=== PATIENT | female | born 1935 | race Asian ===

== ENCOUNTER 2017-09-22 12:13 | Inpatient (IN) | payer MEDICARE, OTHER ==
[2017-09-22 12:56] LABS: ADD MAN DIFF? NO
[2017-09-22] MEDS ORDERED: ACETAMINOPHEN 325 MG TAB PO (13:00)
[2017-09-22] MEDS ORDERED: ONDANSETRON 4 MG INJ IV ×2 (13:00→16:00)
[2017-09-22 13:01] LABS: BASOPHIL # 0.1 10^3/ul (0.0-0.1); BASOPHILS % 0.4 % (0.0-2.0); EOSINOPHILS # 0.1 10^3/ul (0.0-0.5); EOSINOPHILS % 0.9 % (0.0-7.0); HEMATOCRIT 26.5 % (37.0-47.0); MEAN CORPUSCULAR HEMOGLOBIN 30.4 pg (29.0-33.0); MEAN CORPUSCULAR HGB CONC 30.2 g/dl (32.0-37.0); MEAN CORPUSCULAR VOLUME 100.8 fl (82.0-101.0); MEAN PLATELET VOLUME 11.3 fl (7.4-10.4); MONOCYTE # 0.8 10^3/ul (0.3-0.9); MONOCYTES % 5.5 % (0.0-11.0); NEUTROPHIL # 11.9 10^3/ul (1.6-7.5); NEUTROPHILS % 85.6 % (39.0-77.0); PLATELET COUNT 263 10^3/UL (140-415); RED BLOOD COUNT 2.63 10^6/ul (4.20-5.40); RED CELL DISTRIBUTION WIDTH 19.6 % (11.5-14.5)
[2017-09-22 13:01] LABS: WHITE BLOOD COUNT 13.9 10^3/ul (4.8-10.8)
[2017-09-22 13:15] LABS: LACTIC ACID 1.6 mmol/L (0.5-2.0)
[2017-09-22 13:19] LABS: ALANINE AMINOTRANSFERASE 30 IU/L (13-69); ALBUMIN 2.6 g/dl (3.3-4.9); ALBUMIN/GLOBULIN RATIO 0.63; ALKALINE PHOSPHATASE 189 IU/L (42-121); ASPARTATE AMINO TRANSFERASE 42 IU/L (15-46); BILIRUBIN,INDIRECT 0.1 mg/dl (0-1.1); BILIRUBIN,TOTAL 0.1 mg/dl (0.2-1.3); BLOOD UREA NITROGEN 86 mg/dl (7-20); CALCIUM 8.6 mg/dl (8.4-10.2); CHLORIDE 101 mmol/L (97-110); CREATININE 0.81 mg/dl (0.44-1.00); GLUCOSE 193 mg/dl (70-220); POTASSIUM 3.1 mmol/L (3.5-5.1); SODIUM 151 mmol/L (135-144); TOTAL PROTEIN 6.7 g/dl (6.1-8.1)
[2017-09-22 13:31] LABS: ANION GAP 14 (8-16); CARBON DIOXIDE 39 mmol/L (21-31)
[2017-09-22 13:32] LABS: INR 1.43; PROTIME 17.7 Sec (11.9-14.9); PT RATIO 1.4
[2017-09-22 13:33] LABS: PARTIAL THROMBOPLASTIN TIME 42.2 Sec (25.0-35.0)
[2017-09-22] MEDS: ONDANSETRON 4 MG INJ IV (13:52)
[2017-09-22] MEDS: morphine 4 MG/ML VIAL IV (13:53)
[2017-09-22] MEDS: CEFEPIME 2GM/50 ML (PMX) 50 ML IVPB (13:53)
[2017-09-22 14:08] LABS: ADD UMIC YES; UR ASCORBIC ACID NEGATIVE (NEGATIVE); UR BACTERIA MANY /HPF (NONE SEEN); UR BILIRUBIN (Dip) NEGATIVE (NEGATIVE); UR BLOOD (Dip) NEGATIVE (NEGATIVE); UR BUDDING YEAST FEW /HPF (NONE SEEN); UR CLARITY SLIGHTLY CLOUDY (CLEAR); UR COLOR YELLOW (YELLOW); UR GLUCOSE (Dip) NEGATIVE (NEGATIVE); UR KETONES (Dip) NEGATIVE (NEGATIVE); UR LEUKOCYTE ESTERASE (Dip) 3+ Leu/ul (NEGATIVE); UR MUCUS MANY /HPF (NONE SEEN); UR NITRITE (Dip) NEGATIVE (NEGATIVE); UR RBC 9 /HPF (0-5); UR SPECIFIC GRAVITY (Dip) 1.016 (1.003-1.030); UR TOTAL PROTEIN (Dip) 2+ mg/dl (NEGATIVE); UR UROBILINOGEN (Dip) NEGATIVE (NEGATIVE); UR WBC 9 /HPF (0-5)
[2017-09-22] MEDS: VANCOMYCIN 1 GM (PMX) 250 ML IVPB (14:41)
[2017-09-22 15:51] LABS: LACTIC ACID 1.1 mmol/L (0.5-2.0)
[2017-09-22] MEDS ORDERED: GLUCAGON 1 MG INJ IM (16:00)
[2017-09-22] MEDS ORDERED: morphine 2 MG INJ IV (16:00)
[2017-09-22] MEDS ORDERED: NACL 0.9% 3 ML SYG IV (16:00)
[2017-09-22] MEDS ORDERED: VANCOMYCIN IV PER PHARMACY XX (16:00)
[2017-09-22] MEDS ORDERED: ACETAMINOPHEN 650 MG SUPP PR (16:00)
[2017-09-22] MEDS ORDERED: DEXTROSE 50% 50 ML SYRINGE IV (16:00)
[2017-09-22] MEDS ORDERED: GLUCOSE GEL 15 GRAM TUBE PO ×2 (16:00)
[2017-09-22 16:01] LABS: CREATINE KINASE 26 IU/L (23-200)
[2017-09-22 16:14] LABS: CK INDEX 3.8; CK-MB 0.99 ng/ml (0.0-2.4); TROPONIN-I 0.093 ng/ml (0.00-0.12)
[2017-09-22] MEDS: Insulin NOVOLOG SS MILD Algorithm (NPO/TPN/ENTERAL FEEDS) SC ×2 (17:00→22:12)
[2017-09-22] MEDS ORDERED: INSULIN ASPART [NOVOLOG] 3 ML PEN SC ×2 (17:00→18:00)
[2017-09-22 17:13] LABS: LACTIC ACID 1.2 mmol/L (0.5-2.0)
[2017-09-22] MEDS: DEXTROSE 5% 1,000 ML IV (17:25)
[2017-09-22] MEDS: EPOETIN ALFA (NESRD) 3,000 UNITS/ML VIAL SC (22:00)
[2017-09-22] MEDS: APIXABAN 5 MG TABLET GTB (22:01)
[2017-09-22] MEDS: METOPROLOL 25 MG TAB GTB (22:02)
[2017-09-22] MEDS: HEPARIN 5,000 UNIT/0.5 ML VIAL SC (22:10)
[2017-09-22 22:55] LABS: CREATINE KINASE 30 IU/L (23-200)
[2017-09-22 23:08] LABS: CK INDEX 4.7; TROPONIN-I 0.091 ng/ml (0.00-0.12)
[2017-09-22] MEDS ORDERED: PENDING SANTYL ORDER FOR WOUND CARE XX (23:30)
[2017-09-22] MEDS ORDERED: COLLAGENASE 30 GM TUBE TOP (23:45)
[2017-09-23] MEDS: Insulin NOVOLOG SS MILD Algorithm (NPO/TPN/ENTERAL FEEDS) SC ×6 (01:17→21:22)
[2017-09-23] MEDS ORDERED: ACCU-CHEK XX (02:00)
[2017-09-23] MEDS: PANTOPRAZOLE 40 MG INJ IV (05:27)
[2017-09-23 05:47] LABS: ADD MAN DIFF? NO
[2017-09-23 05:54] LABS: WHITE BLOOD COUNT 13.4 10^3/ul (4.8-10.8)
[2017-09-23 05:54] LABS: BASOPHILS % 0.3 % (0.0-2.0); EOSINOPHILS # 0.7 10^3/ul (0.0-0.5); EOSINOPHILS % 5.4 % (0.0-7.0); HEMATOCRIT 25.8 % (37.0-47.0); HEMOGLOBIN 7.7 g/dl (12.0-16.0); LYMPHOCYTES # 0.9 10^3/ul (0.8-2.9); LYMPHOCYTES % 6.6 % (15.0-51.0); MEAN CORPUSCULAR HEMOGLOBIN 30.9 pg (29.0-33.0); MEAN CORPUSCULAR HGB CONC 29.8 g/dl (32.0-37.0); MEAN CORPUSCULAR VOLUME 103.6 fl (82.0-101.0); MEAN PLATELET VOLUME 11.6 fl (7.4-10.4); MONOCYTE # 0.5 10^3/ul (0.3-0.9); MONOCYTES % 3.5 % (0.0-11.0); NEUTROPHIL # 11.2 10^3/ul (1.6-7.5); NEUTROPHILS % 83.6 % (39.0-77.0); PLATELET COUNT 234 10^3/UL (140-415); RED BLOOD COUNT 2.49 10^6/ul (4.20-5.40)
[2017-09-23 06:29] LABS: ALANINE AMINOTRANSFERASE 27 IU/L (13-69); ALBUMIN 2.6 g/dl (3.3-4.9); ALBUMIN/GLOBULIN RATIO 0.68; ALKALINE PHOSPHATASE 127 IU/L (42-121); ASPARTATE AMINO TRANSFERASE 30 IU/L (15-46); BILIRUBIN,INDIRECT 0.1 mg/dl (0-1.1); BILIRUBIN,TOTAL 0.1 mg/dl (0.2-1.3); BLOOD UREA NITROGEN 73 mg/dl (7-20); CALCIUM 8.2 mg/dl (8.4-10.2); CHLORIDE 100 mmol/L (97-110); CREATININE 0.75 mg/dl (0.44-1.00); GLUCOSE 225 mg/dl (70-220); MAGNESIUM 2.3 mg/dl (1.7-2.5); PHOSPHORUS 2.1 mg/dl (2.5-4.9); POTASSIUM 3.6 mmol/L (3.5-5.1); SODIUM 150 mmol/L (135-144); TOTAL PROTEIN 6.4 g/dl (6.1-8.1)
[2017-09-23] MEDS: LEVOTHYROXINE 50 MCG TAB PO (06:32)
[2017-09-23 06:41] LABS: ANION GAP 10 (8-16); CARBON DIOXIDE 44 mmol/L (21-31)
[2017-09-23 07:26] LABS: AADO2 Arterial 20.1 mmHg (7.0-24.0); Allen Test ACCEPTAB; Arterial Base Excess 18.6 mmol/L (-3.0-3); Arterial Blood Gas Oxygen Sat 98.1 mmHG (95.0-100.0); Arterial COHb 0.4 % (0.0-3.0); Arterial Fraction of Oxyhgb 97.3 % (93.0-99.0); Arterial HCO3 42.9 mmol/L (22.0-26.0); Arterial MetHb 0.4 % (0.0-1.5); Arterial Total Hemglobin 9.5 g/dl (12.0-18.0); Arterial pCO2 49.4 mmhg (35-45); MODE NASAL CANNULA; Site Left Radial
[2017-09-23] MEDS: COLLAGENASE 30 GM TUBE TOP ×3 (09:00→21:00)
[2017-09-23] MEDS: HEPARIN 5,000 UNIT/0.5 ML VIAL SC (09:00)
[2017-09-23] MEDS: APIXABAN 5 MG TABLET GTB ×2 (09:00→10:03)
[2017-09-23] MEDS ORDERED: DEXTROSE 5% 1,000 ML IV (09:30)
[2017-09-23] MEDS: METOPROLOL 25 MG TAB GTB ×2 (10:02→21:00)
[2017-09-23] MEDS: CHOLECALCIFEROL 1,000 UNIT TAB GTB (10:02)
[2017-09-23] MEDS: ACETAZOLAMIDE 250 MG TAB GTB (10:54)
[2017-09-23] MEDS: DEXTROSE 5% 250 ML IV ×3 (10:57→18:52)
[2017-09-23] MEDS: VANCOMYCIN 750 MG in DEXTROSE 5% 150 ML IVPB (12:42)
[2017-09-23] MEDS: CEFEPIME 1GM/50 ML (PMX) 50 ML IVPB (14:09)
[2017-09-23] MEDS ORDERED: ACETAZOLAMIDE 250 MG TAB PO (21:00)
[2017-09-23] MEDS: ACETAZOLAMIDE 250 MG TAB PO (21:17)
[2017-09-24] MEDS: Insulin NOVOLOG SS MILD Algorithm (NPO/TPN/ENTERAL FEEDS) SC ×6 (00:40→21:36)
[2017-09-24] MEDS: LEVOTHYROXINE 50 MCG TAB PO (06:10)
[2017-09-24] MEDS: PANTOPRAZOLE 40 MG INJ IV (06:10)
[2017-09-24 06:18] LABS: ADD MAN DIFF? NO
[2017-09-24 06:25] LABS: BASOPHILS % 0.3 % (0.0-2.0); EOSINOPHILS # 1.2 10^3/ul (0.0-0.5); EOSINOPHILS % 12.6 % (0.0-7.0); HEMATOCRIT 25.2 % (37.0-47.0); HEMOGLOBIN 7.7 g/dl (12.0-16.0); LYMPHOCYTES % 10.6 % (15.0-51.0); MEAN CORPUSCULAR HEMOGLOBIN 31.2 pg (29.0-33.0); MEAN CORPUSCULAR HGB CONC 30.6 g/dl (32.0-37.0); MEAN PLATELET VOLUME 11.7 fl (7.4-10.4); MONOCYTE # 0.4 10^3/ul (0.3-0.9); MONOCYTES % 3.9 % (0.0-11.0); NUCLEATED RED BLOOD CELLS% 0.2 /100WBC (0.0-0.0); PLATELET COUNT 226 10^3/UL (140-415); RED BLOOD COUNT 2.47 10^6/ul (4.20-5.40); RED CELL DISTRIBUTION WIDTH 18.5 % (11.5-14.5)
[2017-09-24 06:25] LABS: WHITE BLOOD COUNT 9.8 10^3/ul (4.8-10.8)
[2017-09-24 06:53] LABS: ALANINE AMINOTRANSFERASE 26 IU/L (13-69); ALBUMIN 2.6 g/dl (3.3-4.9); ALBUMIN/GLOBULIN RATIO 0.74; ALKALINE PHOSPHATASE 121 IU/L (42-121); ASPARTATE AMINO TRANSFERASE 36 IU/L (15-46); BILIRUBIN,INDIRECT 0.2 mg/dl (0-1.1); BILIRUBIN,TOTAL 0.2 mg/dl (0.2-1.3); BLOOD UREA NITROGEN 56 mg/dl (7-20); CALCIUM 7.9 mg/dl (8.4-10.2); CHLORIDE 98 mmol/L (97-110); CREATININE 0.81 mg/dl (0.44-1.00); GLUCOSE 185 mg/dl (70-220); POTASSIUM 3.5 mmol/L (3.5-5.1); SODIUM 146 mmol/L (135-144); TOTAL PROTEIN 6.1 g/dl (6.1-8.1)
[2017-09-24 07:00] LABS: ANION GAP 12 (8-16)
[2017-09-24 07:20] LABS: CARBON DIOXIDE 40 mmol/L (21-31)
[2017-09-24] MEDS: CHOLECALCIFEROL 1,000 UNIT TAB GTB (09:01)
[2017-09-24] MEDS: ACETAZOLAMIDE 250 MG TAB PO ×2 (09:01→21:17)
[2017-09-24] MEDS: METOPROLOL 25 MG TAB GTB ×2 (09:02→21:18)
[2017-09-24] MEDS: COLLAGENASE 30 GM TUBE TOP ×2 (12:16→21:18)
[2017-09-24] MEDS: VANCOMYCIN 750 MG in DEXTROSE 5% 150 ML IVPB (12:17)
[2017-09-24] MEDS: CEFEPIME 1GM/50 ML (PMX) 50 ML IVPB (14:42)
[2017-09-24] MEDS ORDERED: VITAMIN A & D 5 GM OINT PACKET TOP (14:53)
[2017-09-24 16:20] LABS: INR 1.36; PT RATIO 1.3
[2017-09-24] MEDS ORDERED: LIDOCAINE 1%/EPI (MDV) 50 ML INJ INJ (17:43)
[2017-09-24] MEDS ORDERED: SILVER NITRATE SWAB TOP (18:00)
[2017-09-25] MEDS: Insulin NOVOLOG SS MILD Algorithm (NPO/TPN/ENTERAL FEEDS) SC ×6 (01:39→21:15)
[2017-09-25] MEDS: PANTOPRAZOLE 40 MG INJ IV (05:38)
[2017-09-25 05:39] LABS: ADD MAN DIFF? NO
[2017-09-25 05:45] LABS: BASOPHILS % 0.2 % (0.0-2.0); EOSINOPHILS # 0.8 10^3/ul (0.0-0.5); EOSINOPHILS % 7.3 % (0.0-7.0); HEMATOCRIT 25.1 % (37.0-47.0); HEMOGLOBIN 7.7 g/dl (12.0-16.0); LYMPHOCYTES # 0.9 10^3/ul (0.8-2.9); LYMPHOCYTES % 9.1 % (15.0-51.0); MEAN CORPUSCULAR HEMOGLOBIN 30.9 pg (29.0-33.0); MEAN CORPUSCULAR HGB CONC 30.7 g/dl (32.0-37.0); MEAN CORPUSCULAR VOLUME 100.8 fl (82.0-101.0); MEAN PLATELET VOLUME 11.5 fl (7.4-10.4); MONOCYTE # 0.4 10^3/ul (0.3-0.9); MONOCYTES % 3.9 % (0.0-11.0); NEUTROPHIL # 8.1 10^3/ul (1.6-7.5); NEUTROPHILS % 78.6 % (39.0-77.0); PLATELET COUNT 254 10^3/UL (140-415); RED BLOOD COUNT 2.49 10^6/ul (4.20-5.40)
[2017-09-25 05:45] LABS: WHITE BLOOD COUNT 10.3 10^3/ul (4.8-10.8)
[2017-09-25 06:16] LABS: PHOSPHORUS 2.8 mg/dl (2.5-4.9)
[2017-09-25 06:16] LABS: MAGNESIUM 2.3 mg/dl (1.7-2.5)
[2017-09-25 06:23] LABS: ANION GAP 9 (8-16); BLOOD UREA NITROGEN 49 mg/dl (7-20); CALCIUM 7.6 mg/dl (8.4-10.2); CARBON DIOXIDE 38 mmol/L (21-31); CHLORIDE 98 mmol/L (97-110); CREATININE 0.82 mg/dl (0.44-1.00); GLUCOSE 174 mg/dl (70-220); POTASSIUM 3.4 mmol/L (3.5-5.1); SODIUM 142 mmol/L (135-144)
[2017-09-25] MEDS: LEVOTHYROXINE 50 MCG TAB PO (06:31)
[2017-09-25] MEDS: ACETAZOLAMIDE 250 MG TAB PO ×2 (09:44→20:57)
[2017-09-25] MEDS: CHOLECALCIFEROL 1,000 UNIT TAB GTB (09:44)
[2017-09-25] MEDS: COLLAGENASE 30 GM TUBE TOP ×2 (09:46→20:59)
[2017-09-25] MEDS: METOPROLOL 25 MG TAB GTB ×2 (09:46→20:57)
[2017-09-25 11:47] LABS: VANCOMYCIN,TROUGH 15.8 ug/ml (10.0-20.0)
[2017-09-25] MEDS: VANCOMYCIN 750 MG in DEXTROSE 5% 150 ML IVPB (12:28)
[2017-09-25] MEDS: POTASSIUM CHLORIDE 20 MEQ POWDER FOR ORAL SOLN GTB (12:28)
[2017-09-25] MEDS: ZYVOX 600 MG TAB PO ×2 (17:59→20:57)
[2017-09-25] MEDS: COLISTIMETHATE 135 MG in SOD CHLORIDE 0.9% 100 ML IVPB (18:00)
[2017-09-25] MEDS: EPOETIN ALFA (NESRD) 3,000 UNITS/ML VIAL SC (18:01)
[2017-09-25] MEDS: INSULIN GLARGINE [LANtus] 3 ML PEN SC (21:15)
[2017-09-26] MEDS: Insulin NOVOLOG SS MILD Algorithm (NPO/TPN/ENTERAL FEEDS) SC ×6 (01:20→20:27)
[2017-09-26] MEDS: PANTOPRAZOLE 40 MG INJ IV (05:20)
[2017-09-26 05:54] LABS: ADD MAN DIFF? NO
[2017-09-26 05:59] LABS: BASOPHILS % 0.2 % (0.0-2.0); EOSINOPHILS # 0.8 10^3/ul (0.0-0.5); EOSINOPHILS % 7.1 % (0.0-7.0); HEMATOCRIT 26.3 % (37.0-47.0); HEMOGLOBIN 8.1 g/dl (12.0-16.0); LYMPHOCYTES # 1.6 10^3/ul (0.8-2.9); LYMPHOCYTES % 14.3 % (15.0-51.0); MEAN CORPUSCULAR HEMOGLOBIN 31.3 pg (29.0-33.0); MEAN CORPUSCULAR HGB CONC 30.8 g/dl (32.0-37.0); MEAN CORPUSCULAR VOLUME 101.5 fl (82.0-101.0); MEAN PLATELET VOLUME 11.9 fl (7.4-10.4); MONOCYTE # 0.5 10^3/ul (0.3-0.9); MONOCYTES % 4.4 % (0.0-11.0); NEUTROPHIL # 8.2 10^3/ul (1.6-7.5); NEUTROPHILS % 73.4 % (39.0-77.0); PLATELET COUNT 275 10^3/UL (140-415); RED BLOOD COUNT 2.59 10^6/ul (4.20-5.40); RED CELL DISTRIBUTION WIDTH 18.3 % (11.5-14.5)
[2017-09-26 05:59] LABS: WHITE BLOOD COUNT 11.2 10^3/ul (4.8-10.8)
[2017-09-26] MEDS: LEVOTHYROXINE 50 MCG TAB PO (06:25)
[2017-09-26 06:26] LABS: MAGNESIUM 2.3 mg/dl (1.7-2.5)
[2017-09-26 06:26] LABS: PHOSPHORUS 2.7 mg/dl (2.5-4.9)
[2017-09-26 06:28] LABS: ANION GAP 12 (8-16); BLOOD UREA NITROGEN 47 mg/dl (7-20); CALCIUM 7.7 mg/dl (8.4-10.2); CARBON DIOXIDE 37 mmol/L (21-31); CHLORIDE 97 mmol/L (97-110); CREATININE 0.97 mg/dl (0.44-1.00); GLUCOSE 91 mg/dl (70-220); POTASSIUM 4.3 mmol/L (3.5-5.1); SODIUM 142 mmol/L (135-144)
[2017-09-26] MEDS: ZYVOX 600 MG TAB PO ×2 (09:24→20:20)
[2017-09-26] MEDS: CHOLECALCIFEROL 1,000 UNIT TAB GTB (09:24)
[2017-09-26] MEDS: ACETAZOLAMIDE 250 MG TAB PO (09:25)
[2017-09-26] MEDS: METOPROLOL 25 MG TAB GTB ×2 (09:25→20:21)
[2017-09-26] MEDS: COLLAGENASE 30 GM TUBE TOP ×2 (09:26→20:28)
[2017-09-26] MEDS ORDERED: VANCOMYCIN 500MG/NS (PMX) 100 ML IVPB (13:00)
[2017-09-26] MEDS: COLISTIMETHATE 135 MG in SOD CHLORIDE 0.9% 100 ML IVPB (17:04)
[2017-09-26] MEDS ORDERED: LIDOCAINE 1%/EPI 30 ML INJ INJ (17:20)
[2017-09-26] MEDS ORDERED: LIDOCAINE 1%/EPI (MDV) 50 ML INJ INJ (17:37)
[2017-09-26] MEDS: INSULIN GLARGINE [LANtus] 3 ML PEN SC (20:27)
[2017-09-27] MEDS: Insulin NOVOLOG SS MILD Algorithm (NPO/TPN/ENTERAL FEEDS) SC ×6 (00:13→21:00)
[2017-09-27 06:08] LABS: ADD MAN DIFF? NO
[2017-09-27 06:13] LABS: WHITE BLOOD COUNT 12.5 10^3/ul (4.8-10.8)
[2017-09-27 06:13] LABS: BASOPHILS % 0.3 % (0.0-2.0); EOSINOPHILS % 7.7 % (0.0-7.0); HEMATOCRIT 25.3 % (37.0-47.0); HEMOGLOBIN 7.8 g/dl (12.0-16.0); LYMPHOCYTES # 1.8 10^3/ul (0.8-2.9); LYMPHOCYTES % 14.3 % (15.0-51.0); MEAN CORPUSCULAR HEMOGLOBIN 31.1 pg (29.0-33.0); MEAN CORPUSCULAR HGB CONC 30.8 g/dl (32.0-37.0); MEAN CORPUSCULAR VOLUME 100.8 fl (82.0-101.0); MEAN PLATELET VOLUME 11.8 fl (7.4-10.4); MONOCYTE # 0.6 10^3/ul (0.3-0.9); MONOCYTES % 4.5 % (0.0-11.0); NEUTROPHIL # 9.1 10^3/ul (1.6-7.5); NEUTROPHILS % 72.7 % (39.0-77.0); PLATELET COUNT 286 10^3/UL (140-415); RED BLOOD COUNT 2.51 10^6/ul (4.20-5.40); RED CELL DISTRIBUTION WIDTH 18.4 % (11.5-14.5)
[2017-09-27] MEDS: LEVOTHYROXINE 50 MCG TAB PO (06:16)
[2017-09-27] MEDS: PANTOPRAZOLE 40 MG INJ IV (06:16)
[2017-09-27] MEDS: GLUCOSE GEL 15 GRAM TUBE BUCCAL (06:33)
[2017-09-27 06:38] LABS: ANION GAP 11 (8-16); BLOOD UREA NITROGEN 48 mg/dl (7-20); CALCIUM 7.7 mg/dl (8.4-10.2); CARBON DIOXIDE 34 mmol/L (21-31); CHLORIDE 98 mmol/L (97-110); CREATININE 1.04 mg/dl (0.44-1.00); GLUCOSE 69 mg/dl (70-220); POTASSIUM 4.3 mmol/L (3.5-5.1); SODIUM 139 mmol/L (135-144)
[2017-09-27 06:53] LABS: MAGNESIUM 2.3 mg/dl (1.7-2.5)
[2017-09-27 06:53] LABS: PHOSPHORUS 3.3 mg/dl (2.5-4.9)
[2017-09-27] MEDS: METOPROLOL 25 MG TAB GTB ×2 (09:00→21:00)
[2017-09-27] MEDS: LISINOPRIL 5 MG TAB PO (09:00)
[2017-09-27] MEDS: CHOLECALCIFEROL 1,000 UNIT TAB GTB (09:03)
[2017-09-27] MEDS: ZYVOX 600 MG TAB PO ×2 (09:20→21:00)
[2017-09-27] MEDS: COLLAGENASE 30 GM TUBE TOP ×2 (12:27→21:00)
[2017-09-27] MEDS: COLISTIMETHATE 135 MG in SOD CHLORIDE 0.9% 100 ML IVPB (16:30)
[2017-09-27] MEDS: APIXABAN 5 MG TABLET PO (21:00)
[2017-09-27] MEDS: SODIUM HYPOCHLORITE 0.125% 473 ML BTL IRR (21:00)
[2017-09-27] MEDS: INSULIN GLARGINE [LANtus] 3 ML PEN SC (22:08)
[2017-09-28] MEDS: Insulin NOVOLOG SS MILD Algorithm (NPO/TPN/ENTERAL FEEDS) SC ×6 (01:59→20:55)
[2017-09-28] MEDS: PANTOPRAZOLE 40 MG INJ IV (05:50)
[2017-09-28] MEDS: LEVOTHYROXINE 50 MCG TAB PO (05:50)
[2017-09-28] MEDS: DEXTROSE 50% 50 ML SYRINGE IV (07:54)
[2017-09-28] MEDS: METOPROLOL 25 MG TAB GTB ×2 (09:00→20:51)
[2017-09-28] MEDS: LISINOPRIL 5 MG TAB PO (09:00)
[2017-09-28] MEDS: CHOLECALCIFEROL 1,000 UNIT TAB GTB (09:22)
[2017-09-28] MEDS: APIXABAN 5 MG TABLET PO (09:23)
[2017-09-28] MEDS: ZYVOX 600 MG TAB PO (09:39)
[2017-09-28] MEDS: COLLAGENASE 30 GM TUBE TOP ×2 (15:01→20:52)
[2017-09-28] MEDS: SODIUM HYPOCHLORITE 0.125% 473 ML BTL IRR ×2 (15:02→20:52)
[2017-09-28] MEDS: COLISTIMETHATE 135 MG in SOD CHLORIDE 0.9% 100 ML IVPB (16:34)
[2017-09-28] MEDS: APIXABAN 5 MG TABLET GTB (20:51)
[2017-09-28] MEDS: ZYVOX 600 MG TAB GTB (20:51)
[2017-09-28] MEDS: INSULIN GLARGINE [LANtus] 3 ML PEN SC (20:54)
[2017-09-29] MEDS: Insulin NOVOLOG SS MILD Algorithm (NPO/TPN/ENTERAL FEEDS) SC ×6 (01:00→20:56)
[2017-09-29] MEDS: PANTOPRAZOLE 40 MG INJ IV (05:19)
[2017-09-29] MEDS: LEVOTHYROXINE 50 MCG TAB GTB (06:28)
[2017-09-29 06:44] LABS: ADD MAN DIFF? NO
[2017-09-29 06:46] LABS: WHITE BLOOD COUNT 11.3 10^3/ul (4.8-10.8)
[2017-09-29 06:46] LABS: BASOPHILS % 0.3 % (0.0-2.0); EOSINOPHILS # 1.1 10^3/ul (0.0-0.5); EOSINOPHILS % 9.8 % (0.0-7.0); HEMATOCRIT 25.8 % (37.0-47.0); LYMPHOCYTES # 1.5 10^3/ul (0.8-2.9); LYMPHOCYTES % 13.1 % (15.0-51.0); MEAN CORPUSCULAR HEMOGLOBIN 30.9 pg (29.0-33.0); MEAN CORPUSCULAR VOLUME 99.6 fl (82.0-101.0); MONOCYTE # 0.5 10^3/ul (0.3-0.9); MONOCYTES % 4.4 % (0.0-11.0); NEUTROPHIL # 8.1 10^3/ul (1.6-7.5); NEUTROPHILS % 71.8 % (39.0-77.0); PLATELET COUNT 329 10^3/UL (140-415); RED BLOOD COUNT 2.59 10^6/ul (4.20-5.40); RED CELL DISTRIBUTION WIDTH 18.6 % (11.5-14.5)
[2017-09-29 07:09] LABS: ALANINE AMINOTRANSFERASE 19 IU/L (13-69); ALBUMIN 2.4 g/dl (3.3-4.9); ALKALINE PHOSPHATASE 106 IU/L (42-121); ANION GAP 13 (8-16); ASPARTATE AMINO TRANSFERASE 23 IU/L (15-46); BILIRUBIN,INDIRECT 0.1 mg/dl (0-1.1); BILIRUBIN,TOTAL 0.1 mg/dl (0.2-1.3); BLOOD UREA NITROGEN 50 mg/dl (7-20); CALCIUM 8.1 mg/dl (8.4-10.2); CARBON DIOXIDE 35 mmol/L (21-31); CHLORIDE 98 mmol/L (97-110); CREATININE 1.22 mg/dl (0.44-1.00); GLUCOSE 78 mg/dl (70-220); POTASSIUM 4.4 mmol/L (3.5-5.1); SODIUM 142 mmol/L (135-144); TOTAL PROTEIN 6.4 g/dl (6.1-8.1)
[2017-09-29] MEDS: METOPROLOL 25 MG TAB GTB ×2 (09:00→20:38)
[2017-09-29] MEDS: SODIUM HYPOCHLORITE 0.125% 473 ML BTL IRR ×2 (09:00→20:47)
[2017-09-29] MEDS: COLLAGENASE 30 GM TUBE TOP ×2 (09:00→20:48)
[2017-09-29] MEDS: LISINOPRIL 5 MG TAB GTB (09:00)
[2017-09-29] MEDS: APIXABAN 5 MG TABLET GTB ×2 (09:29→20:46)
[2017-09-29] MEDS: CHOLECALCIFEROL 1,000 UNIT TAB GTB (09:29)
[2017-09-29] MEDS: ZYVOX 600 MG TAB GTB ×2 (09:31→20:47)
[2017-09-29] MEDS: SOD CHLORIDE 0.45% 1,000 ML IV (15:30)
[2017-09-29] MEDS: COLISTIMETHATE 135 MG in SOD CHLORIDE 0.9% 100 ML IVPB (16:00)
[2017-09-29] MEDS: EPOETIN ALFA (NESRD) 3,000 UNITS/ML VIAL SC (17:00)
[2017-09-29 18:56] LABS: ANION GAP 10 (8-16); BLOOD UREA NITROGEN 47 mg/dl (7-20); CALCIUM 8.1 mg/dl (8.4-10.2); CARBON DIOXIDE 34 mmol/L (21-31); CHLORIDE 98 mmol/L (97-110); CREATININE 1.24 mg/dl (0.44-1.00); GLUCOSE 144 mg/dl (70-220); POTASSIUM 4.2 mmol/L (3.5-5.1); SODIUM 138 mmol/L (135-144)
[2017-09-29] MEDS: INSULIN GLARGINE [LANtus] 3 ML PEN SC (20:57)
[2017-09-30] MEDS: Insulin NOVOLOG SS MILD Algorithm (NPO/TPN/ENTERAL FEEDS) SC ×6 (01:01→20:59)
[2017-09-30] MEDS: PANTOPRAZOLE 40 MG INJ IV (05:29)
[2017-09-30] MEDS: LEVOTHYROXINE 50 MCG TAB GTB (06:20)
[2017-09-30 06:51] LABS: BLOOD UREA NITROGEN 49 mg/dl (7-20)
[2017-09-30 06:51] LABS: CREATININE 1.18 mg/dl (0.44-1.00)
[2017-09-30] MEDS: ZYVOX 600 MG TAB GTB ×2 (08:59→21:06)
[2017-09-30] MEDS: CHOLECALCIFEROL 1,000 UNIT TAB GTB (08:59)
[2017-09-30] MEDS: APIXABAN 5 MG TABLET GTB ×2 (08:59→21:06)
[2017-09-30] MEDS: METOPROLOL 25 MG TAB GTB ×2 (09:00→20:59)
[2017-09-30] MEDS: COLLAGENASE 30 GM TUBE TOP ×2 (09:02→21:07)
[2017-09-30] MEDS: SODIUM HYPOCHLORITE 0.125% 473 ML BTL IRR ×2 (09:02→21:07)
[2017-09-30] MEDS: SOD CHLORIDE 0.45% 1,000 ML IV (11:30)
[2017-09-30] MEDS: INSULIN GLARGINE [LANtus] 3 ML PEN SC (20:57)
[2017-10-01] MEDS: Insulin NOVOLOG SS MILD Algorithm (NPO/TPN/ENTERAL FEEDS) SC ×6 (00:43→21:00)
[2017-10-01] MEDS: SOD CHLORIDE 0.45% 1,000 ML IV ×2 (03:39→06:21)
[2017-10-01] MEDS: PANTOPRAZOLE 40 MG INJ IV (05:21)
[2017-10-01 05:54] LABS: ADD MAN DIFF? NO
[2017-10-01 05:57] LABS: WHITE BLOOD COUNT 9.4 10^3/ul (4.8-10.8)
[2017-10-01 05:57] LABS: BASOPHILS % 0.3 % (0.0-2.0); EOSINOPHILS # 1.2 10^3/ul (0.0-0.5); EOSINOPHILS % 12.6 % (0.0-7.0); HEMATOCRIT 23.3 % (37.0-47.0); HEMOGLOBIN 7.3 g/dl (12.0-16.0); LYMPHOCYTES # 1.3 10^3/ul (0.8-2.9); LYMPHOCYTES % 13.9 % (15.0-51.0); MEAN CORPUSCULAR HEMOGLOBIN 31.3 pg (29.0-33.0); MEAN CORPUSCULAR HGB CONC 31.3 g/dl (32.0-37.0); MEAN PLATELET VOLUME 10.2 fl (7.4-10.4); MONOCYTE # 0.3 10^3/ul (0.3-0.9); MONOCYTES % 3.5 % (0.0-11.0); NEUTROPHIL # 6.5 10^3/ul (1.6-7.5); NEUTROPHILS % 69.3 % (39.0-77.0); PLATELET COUNT 291 10^3/UL (140-415); RED BLOOD COUNT 2.33 10^6/ul (4.20-5.40); RED CELL DISTRIBUTION WIDTH 18.1 % (11.5-14.5)
[2017-10-01 06:18] LABS: ANION GAP 12 (8-16); BLOOD UREA NITROGEN 45 mg/dl (7-20); CARBON DIOXIDE 31 mmol/L (21-31); CHLORIDE 99 mmol/L (97-110); CREATININE 1.26 mg/dl (0.44-1.00); GLUCOSE 110 mg/dl (70-220); MAGNESIUM 1.8 mg/dl (1.7-2.5); POTASSIUM 3.6 mmol/L (3.5-5.1); SODIUM 138 mmol/L (135-144)
[2017-10-01] MEDS: LEVOTHYROXINE 50 MCG TAB GTB (06:20)
[2017-10-01] MEDS: ZYVOX 600 MG TAB GTB ×2 (08:16→21:10)
[2017-10-01] MEDS: CHOLECALCIFEROL 1,000 UNIT TAB GTB (08:16)
[2017-10-01] MEDS: METOPROLOL 25 MG TAB GTB ×2 (08:17→21:10)
[2017-10-01] MEDS: APIXABAN 5 MG TABLET GTB ×2 (08:17→21:10)
[2017-10-01] MEDS: SODIUM HYPOCHLORITE 0.125% 473 ML BTL IRR ×2 (08:18→21:11)
[2017-10-01] MEDS: COLLAGENASE 30 GM TUBE TOP ×2 (09:00→21:11)
[2017-10-01] MEDS: CEFEPIME 1GM/50 ML (PMX) 50 ML IVPB ×2 (12:42→21:11)
[2017-10-01 14:05] LABS: ADD UMIC YES; UR ASCORBIC ACID 40 mg/dL (NEGATIVE); UR BACTERIA FEW /HPF (NONE SEEN); UR BILIRUBIN (Dip) NEGATIVE (NEGATIVE); UR BLOOD (Dip) NEGATIVE (NEGATIVE); UR CLARITY CLOUDY (CLEAR); UR COLOR YELLOW (YELLOW); UR GLUCOSE (Dip) NEGATIVE (NEGATIVE); UR KETONES (Dip) NEGATIVE (NEGATIVE); UR LEUKOCYTE ESTERASE (Dip) TRACE Leu/ul (NEGATIVE); UR NITRITE (Dip) NEGATIVE (NEGATIVE); UR RBC 3 /HPF (0-5); UR SPECIFIC GRAVITY (Dip) 1.015 (1.003-1.030); UR TOTAL PROTEIN (Dip) 2+ mg/dl (NEGATIVE); UR UROBILINOGEN (Dip) 1+ mg/dL (NEGATIVE); UR WBC 11 /HPF (0-5)
[2017-10-01 14:07] LABS: SODIUM,URINE RANDOM 28 mmol/L (30-90)
[2017-10-01] MEDS: FUROSEMIDE 20 MG INJ IV (17:28)
[2017-10-01] MEDS: INSULIN GLARGINE [LANtus] 3 ML PEN SC (20:00)
[2017-10-02] MEDS: SOD CHLORIDE 0.45% 1,000 ML IV ×3 (01:00→22:29)
[2017-10-02] MEDS: Insulin NOVOLOG SS MILD Algorithm (NPO/TPN/ENTERAL FEEDS) SC ×6 (01:07→21:09)
[2017-10-02] MEDS: PANTOPRAZOLE 40 MG INJ IV (06:12)
[2017-10-02] MEDS: LEVOTHYROXINE 50 MCG TAB GTB (06:12)
[2017-10-02 07:16] LABS: ANION GAP 10 (8-16); BLOOD UREA NITROGEN 45 mg/dl (7-20); CALCIUM 7.9 mg/dl (8.4-10.2); CARBON DIOXIDE 29 mmol/L (21-31); CHLORIDE 99 mmol/L (97-110); CREATININE 1.28 mg/dl (0.44-1.00); GLUCOSE 148 mg/dl (70-220); POTASSIUM 3.4 mmol/L (3.5-5.1); SODIUM 135 mmol/L (135-144)
[2017-10-02] MEDS: ZYVOX 600 MG TAB GTB ×2 (09:12→20:57)
[2017-10-02] MEDS: CEFEPIME 1GM/50 ML (PMX) 50 ML IVPB ×2 (09:12→20:57)
[2017-10-02] MEDS: METOPROLOL 25 MG TAB GTB ×2 (09:12→20:49)
[2017-10-02] MEDS: APIXABAN 5 MG TABLET GTB ×2 (09:12→20:57)
[2017-10-02] MEDS: CHOLECALCIFEROL 1,000 UNIT TAB GTB (09:12)
[2017-10-02] MEDS: SODIUM HYPOCHLORITE 0.125% 473 ML BTL IRR ×2 (09:13→20:57)
[2017-10-02] MEDS: COLLAGENASE 30 GM TUBE TOP ×2 (09:13→20:58)
[2017-10-02] MEDS: POTASSIUM CHLORIDE 100 ML IVPB ×2 (10:56→14:24)
[2017-10-02] MEDS: EPOETIN ALFA (NESRD) 3,000 UNITS/ML VIAL SC (17:47)
[2017-10-02] MEDS: ALBUMIN HUMAN 25% 100 ML IV (19:55)
[2017-10-02] MEDS: INSULIN GLARGINE [LANtus] 3 ML PEN SC (21:10)
[2017-10-03] MEDS: Insulin NOVOLOG SS MILD Algorithm (NPO/TPN/ENTERAL FEEDS) SC ×6 (01:31→20:31)
[2017-10-03] MEDS: ALBUMIN HUMAN 25% 100 ML IV ×2 (02:41→10:05)
[2017-10-03] MEDS: PANTOPRAZOLE 40 MG INJ IV (05:38)
[2017-10-03 05:53] LABS: ADD MAN DIFF? NO
[2017-10-03 06:11] LABS: WHITE BLOOD COUNT 6.8 10^3/ul (4.8-10.8)
[2017-10-03 06:11] LABS: ABNORMAL IP MESSAGE 1; BASOPHILS % 0.3 % (0.0-2.0); EOSINOPHILS # 0.6 10^3/ul (0.0-0.5); EOSINOPHILS % 8.2 % (0.0-7.0); HEMATOCRIT 21.2 % (37.0-47.0); LYMPHOCYTES # 0.6 10^3/ul (0.8-2.9); LYMPHOCYTES % 9.4 % (15.0-51.0); MEAN CORPUSCULAR HEMOGLOBIN 31.9 pg (29.0-33.0); MEAN CORPUSCULAR HGB CONC 32.1 g/dl (32.0-37.0); MEAN CORPUSCULAR VOLUME 99.5 fl (82.0-101.0); MEAN PLATELET VOLUME 10.6 fl (7.4-10.4); MONOCYTE # 0.2 10^3/ul (0.3-0.9); MONOCYTES % 2.5 % (0.0-11.0); NEUTROPHIL # 5.4 10^3/ul (1.6-7.5); NEUTROPHILS % 79.2 % (39.0-77.0); PLATELET COUNT 214 10^3/UL (140-415); RED BLOOD COUNT 2.13 10^6/ul (4.20-5.40); RED CELL DISTRIBUTION WIDTH 17.6 % (11.5-14.5)
[2017-10-03 06:19] LABS: POSITIVE DIFF @See below
[2017-10-03 06:21] LABS: HEMOGLOBIN 6.8 g/dl (12.0-16.0)
[2017-10-03 06:27] LABS: MAGNESIUM 1.8 mg/dl (1.7-2.5)
[2017-10-03 06:27] LABS: PHOSPHORUS 4.8 mg/dl (2.5-4.9)
[2017-10-03 06:32] LABS: ANION GAP 16 (8-16); BLOOD UREA NITROGEN 50 mg/dl (7-20); CALCIUM 8.1 mg/dl (8.4-10.2); CARBON DIOXIDE 25 mmol/L (21-31); CHLORIDE 98 mmol/L (97-110); CREATININE 1.39 mg/dl (0.44-1.00); GLUCOSE 168 mg/dl (70-220); POTASSIUM 4.5 mmol/L (3.5-5.1); SODIUM 134 mmol/L (135-144)
[2017-10-03] MEDS: LEVOTHYROXINE 50 MCG TAB GTB (06:52)
[2017-10-03] MEDS: ZYVOX 600 MG TAB GTB ×2 (08:14→20:26)
[2017-10-03] MEDS: CHOLECALCIFEROL 1,000 UNIT TAB GTB (08:15)
[2017-10-03] MEDS: APIXABAN 5 MG TABLET GTB (08:15)
[2017-10-03] MEDS: METOPROLOL 25 MG TAB GTB ×2 (08:20→20:26)
[2017-10-03] MEDS: CEFEPIME 1GM/50 ML (PMX) 50 ML IVPB ×2 (08:26→20:25)
[2017-10-03] MEDS: COLLAGENASE 30 GM TUBE TOP ×2 (12:21→20:27)
[2017-10-03] MEDS: SODIUM HYPOCHLORITE 0.125% 473 ML BTL IRR ×2 (12:21→20:26)
[2017-10-03 14:07] LABS: IMMEDIATE SPIN CROSSMATCH 1 1
[2017-10-03] MEDS: FUROSEMIDE 40 MG INJ IV (17:33)
[2017-10-03] MEDS: INSULIN GLARGINE [LANtus] 3 ML PEN SC (20:30)
[2017-10-04] MEDS: Insulin NOVOLOG SS MILD Algorithm (NPO/TPN/ENTERAL FEEDS) SC ×6 (01:00→21:00)
[2017-10-04] MEDS: PANTOPRAZOLE 40 MG INJ IV (05:51)
[2017-10-04] MEDS: LEVOTHYROXINE 50 MCG TAB GTB (06:11)
[2017-10-04 06:24] LABS: ADD MAN DIFF? NO
[2017-10-04 06:29] LABS: BASOPHILS % 0.3 % (0.0-2.0); EOSINOPHILS # 0.5 10^3/ul (0.0-0.5); EOSINOPHILS % 8.4 % (0.0-7.0); HEMATOCRIT 26.3 % (37.0-47.0); HEMOGLOBIN 8.8 g/dl (12.0-16.0); LYMPHOCYTES # 0.8 10^3/ul (0.8-2.9); LYMPHOCYTES % 12.4 % (15.0-51.0); MEAN CORPUSCULAR HEMOGLOBIN 30.9 pg (29.0-33.0); MEAN CORPUSCULAR HGB CONC 33.5 g/dl (32.0-37.0); MEAN CORPUSCULAR VOLUME 92.3 fl (82.0-101.0); MEAN PLATELET VOLUME 10.4 fl (7.4-10.4); MONOCYTE # 0.2 10^3/ul (0.3-0.9); MONOCYTES % 3.3 % (0.0-11.0); NEUTROPHIL # 4.9 10^3/ul (1.6-7.5); NEUTROPHILS % 75.3 % (39.0-77.0); PLATELET COUNT 193 10^3/UL (140-415); RED BLOOD COUNT 2.85 10^6/ul (4.20-5.40); RED CELL DISTRIBUTION WIDTH 19.2 % (11.5-14.5)
[2017-10-04 06:29] LABS: WHITE BLOOD COUNT 6.4 10^3/ul (4.8-10.8)
[2017-10-04 07:02] LABS: ANION GAP 18 (8-16); BLOOD UREA NITROGEN 55 mg/dl (7-20); CALCIUM 8.1 mg/dl (8.4-10.2); CARBON DIOXIDE 24 mmol/L (21-31); CHLORIDE 100 mmol/L (97-110); CREATININE 1.54 mg/dl (0.44-1.00); GLUCOSE 103 mg/dl (70-220); SODIUM 138 mmol/L (135-144)
[2017-10-04 07:12] LABS: HEMOGLOBIN A1C 6.7 % (0-5.9)
[2017-10-04] MEDS: CHOLECALCIFEROL 1,000 UNIT TAB GTB (08:48)
[2017-10-04] MEDS: CEFEPIME 1GM/50 ML (PMX) 50 ML IVPB ×2 (08:48→20:35)
[2017-10-04] MEDS: METOPROLOL 25 MG TAB GTB ×2 (08:49→20:35)
[2017-10-04] MEDS: SODIUM HYPOCHLORITE 0.125% 473 ML BTL IRR ×2 (08:49→21:10)
[2017-10-04] MEDS: ZYVOX 600 MG TAB GTB ×2 (08:49→20:35)
[2017-10-04] MEDS: COLLAGENASE 30 GM TUBE TOP ×2 (08:50→21:11)
[2017-10-04] MEDS: ACETAMINOPHEN 650MG/20.3ML CUP GTB (20:34)
[2017-10-04] MEDS: INSULIN GLARGINE [LANtus] 3 ML PEN SC (21:21)
[2017-10-05] MEDS: Insulin NOVOLOG SS MILD Algorithm (NPO/TPN/ENTERAL FEEDS) SC ×6 (01:00→21:00)
[2017-10-05] MEDS: PANTOPRAZOLE 40 MG INJ IV (05:41)
[2017-10-05] MEDS: LEVOTHYROXINE 50 MCG TAB GTB (05:43)
[2017-10-05] MEDS: CEFEPIME 1GM/50 ML (PMX) 50 ML IVPB ×2 (08:39→21:11)
[2017-10-05] MEDS: ZYVOX 600 MG TAB GTB ×2 (08:41→21:11)
[2017-10-05] MEDS: CHOLECALCIFEROL 1,000 UNIT TAB GTB (08:41)
[2017-10-05] MEDS: METOPROLOL 25 MG TAB GTB ×2 (08:42→21:00)
[2017-10-05] MEDS: SODIUM HYPOCHLORITE 0.125% 473 ML BTL IRR ×2 (08:43→21:12)
[2017-10-05] MEDS: COLLAGENASE 30 GM TUBE TOP ×2 (08:44→21:00)
[2017-10-05] MEDS ORDERED: DOCUSATE SODIUM 10 MG/ML (10ML CUP) GTB (15:30)
[2017-10-05] MEDS: ASCORBIC ACID 500 MG TAB NGT (21:11)
[2017-10-05] MEDS: INSULIN GLARGINE [LANtus] 3 ML PEN SC (21:20)
[2017-10-06] MEDS: Insulin NOVOLOG SS MILD Algorithm (NPO/TPN/ENTERAL FEEDS) SC ×6 (01:00→20:46)
[2017-10-06] MEDS: PANTOPRAZOLE 40 MG INJ IV (05:06)
[2017-10-06] MEDS: LEVOTHYROXINE 50 MCG TAB GTB (06:21)
[2017-10-06] MEDS: CEFEPIME 1GM/50 ML (PMX) 50 ML IVPB ×2 (08:45→20:41)
[2017-10-06] MEDS: ZYVOX 600 MG TAB GTB ×2 (08:46→20:41)
[2017-10-06] MEDS: CHOLECALCIFEROL 1,000 UNIT TAB GTB (08:46)
[2017-10-06] MEDS: ASCORBIC ACID 500 MG TAB NGT ×2 (08:46→20:41)
[2017-10-06] MEDS: METOPROLOL 25 MG TAB GTB ×2 (08:47→20:40)
[2017-10-06] MEDS: SODIUM HYPOCHLORITE 0.125% 473 ML BTL IRR ×2 (09:00→20:43)
[2017-10-06] MEDS: COLLAGENASE 30 GM TUBE TOP ×2 (09:00→20:44)
[2017-10-06] MEDS: LIDOCAINE 1% (MPF) 5 ML VIAL SC (16:30)
[2017-10-06] MEDS: EPOETIN ALFA (NESRD) 3,000 UNITS/ML VIAL SC (17:59)
[2017-10-06] MEDS: INSULIN GLARGINE [LANtus] 3 ML PEN SC (20:49)
[2017-10-07] MEDS: Insulin NOVOLOG SS MILD Algorithm (NPO/TPN/ENTERAL FEEDS) SC ×6 (01:00→21:10)
[2017-10-07] MEDS: LEVOTHYROXINE 50 MCG TAB GTB (06:30)
[2017-10-07] MEDS: PANTOPRAZOLE 40 MG INJ IV (06:30)
[2017-10-07 07:05] LABS: ADD MAN DIFF? NO
[2017-10-07 07:09] LABS: BASOPHILS % 0.3 % (0.0-2.0); EOSINOPHILS # 0.6 10^3/ul (0.0-0.5); EOSINOPHILS % 10.9 % (0.0-7.0); HEMATOCRIT 25.8 % (37.0-47.0); HEMOGLOBIN 8.1 g/dl (12.0-16.0); LYMPHOCYTES # 1.1 10^3/ul (0.8-2.9); LYMPHOCYTES % 18.5 % (15.0-51.0); MEAN CORPUSCULAR HEMOGLOBIN 30.2 pg (29.0-33.0); MEAN CORPUSCULAR HGB CONC 31.4 g/dl (32.0-37.0); MEAN CORPUSCULAR VOLUME 96.3 fl (82.0-101.0); MEAN PLATELET VOLUME 10.8 fl (7.4-10.4); MONOCYTE # 0.1 10^3/ul (0.3-0.9); MONOCYTES % 2.2 % (0.0-11.0); NEUTROPHILS % 67.8 % (39.0-77.0); PLATELET COUNT 140 10^3/UL (140-415); RED BLOOD COUNT 2.68 10^6/ul (4.20-5.40); RED CELL DISTRIBUTION WIDTH 18.8 % (11.5-14.5)
[2017-10-07 07:09] LABS: WHITE BLOOD COUNT 5.9 10^3/ul (4.8-10.8)
[2017-10-07 07:30] LABS: MAGNESIUM 2.1 mg/dl (1.7-2.5)
[2017-10-07 07:30] LABS: PHOSPHORUS 3.6 mg/dl (2.5-4.9)
[2017-10-07 07:38] LABS: ALANINE AMINOTRANSFERASE 14 IU/L (13-69); ALBUMIN 2.7 g/dl (3.3-4.9); ALBUMIN/GLOBULIN RATIO 0.69; ALKALINE PHOSPHATASE 111 IU/L (42-121); ANION GAP 15 (8-16); ASPARTATE AMINO TRANSFERASE 18 IU/L (15-46); BLOOD UREA NITROGEN 71 mg/dl (7-20); CALCIUM 8.5 mg/dl (8.4-10.2); CARBON DIOXIDE 27 mmol/L (21-31); CHLORIDE 104 mmol/L (97-110); CREATININE 1.53 mg/dl (0.44-1.00); GLUCOSE 56 mg/dl (70-220); SODIUM 142 mmol/L (135-144); TOTAL PROTEIN 6.6 g/dl (6.1-8.1)
[2017-10-07] MEDS: ZYVOX 600 MG TAB GTB (08:47)
[2017-10-07] MEDS: CHOLECALCIFEROL 1,000 UNIT TAB GTB (08:47)
[2017-10-07] MEDS: METOPROLOL 25 MG TAB GTB ×2 (08:47→21:05)
[2017-10-07] MEDS: ASCORBIC ACID 500 MG TAB NGT ×2 (08:47→21:04)
[2017-10-07] MEDS: COLLAGENASE 30 GM TUBE TOP ×2 (08:51→21:06)
[2017-10-07] MEDS: CEFEPIME 1GM/50 ML (PMX) 50 ML IVPB (08:51)
[2017-10-07] MEDS: SODIUM HYPOCHLORITE 0.125% 473 ML BTL IRR ×2 (08:51→21:05)
[2017-10-07] MEDS: AMPICILLIN 1 GM/NS (PMX) 50 ML IVPB ×2 (15:37→21:06)
[2017-10-07] MEDS: SOD CHLORIDE 0.45% 1,000 ML IV (17:52)
[2017-10-07 18:28] LABS: ADD UMIC YES; UR ASCORBIC ACID 40 mg/dL (NEGATIVE); UR BACTERIA FEW /HPF (NONE SEEN); UR BILIRUBIN (Dip) NEGATIVE (NEGATIVE); UR BLOOD (Dip) 3+ mg/dL (NEGATIVE); UR CLARITY CLOUDY (CLEAR); UR COLOR YELLOW (YELLOW); UR GLUCOSE (Dip) NEGATIVE (NEGATIVE); UR GRANULAR CAST FEW /HPF (NONE SEEN); UR KETONES (Dip) TRACE mg/dL (NEGATIVE); UR LEUKOCYTE ESTERASE (Dip) 2+ Leu/ul (NEGATIVE); UR NITRITE (Dip) NEGATIVE (NEGATIVE); UR NONSQUAMOUS EPITHELIAL CELL 1 /HPF (NONE SEEN); UR RBC > 182 /HPF (0-5); UR SPECIFIC GRAVITY (Dip) 1.018 (1.003-1.030); UR TOTAL PROTEIN (Dip) 2+ mg/dl (NEGATIVE); UR UROBILINOGEN (Dip) NEGATIVE (NEGATIVE); UR WBC 98 /HPF (0-5)
[2017-10-07] MEDS: L ACIDOPHIL/B LACTIS/B LONGUM CAPSULE PO (21:04)
[2017-10-07 23:05] LABS: SODIUM,URINE RANDOM 16 mmol/L (30-90)
[2017-10-08] MEDS: Insulin NOVOLOG SS MILD Algorithm (NPO/TPN/ENTERAL FEEDS) SC ×6 (00:34→21:05)
[2017-10-08 05:57] LABS: ADD MAN DIFF? NO
[2017-10-08 06:06] LABS: WHITE BLOOD COUNT 6.8 10^3/ul (4.8-10.8)
[2017-10-08 06:06] LABS: BASOPHILS % 0.6 % (0.0-2.0); EOSINOPHILS # 0.8 10^3/ul (0.0-0.5); EOSINOPHILS % 11.5 % (0.0-7.0); HEMATOCRIT 26.1 % (37.0-47.0); HEMOGLOBIN 8.2 g/dl (12.0-16.0); LYMPHOCYTES % 15.2 % (15.0-51.0); MEAN CORPUSCULAR HEMOGLOBIN 30.6 pg (29.0-33.0); MEAN CORPUSCULAR HGB CONC 31.4 g/dl (32.0-37.0); MEAN CORPUSCULAR VOLUME 97.4 fl (82.0-101.0); MEAN PLATELET VOLUME 10.8 fl (7.4-10.4); MONOCYTE # 0.1 10^3/ul (0.3-0.9); MONOCYTES % 1.5 % (0.0-11.0); NEUTROPHIL # 4.8 10^3/ul (1.6-7.5); NEUTROPHILS % 70.8 % (39.0-77.0); PLATELET COUNT 127 10^3/UL (140-415); RED BLOOD COUNT 2.68 10^6/ul (4.20-5.40); RED CELL DISTRIBUTION WIDTH 18.4 % (11.5-14.5)
[2017-10-08 06:11] LABS: ANION GAP 16 (8-16); BLOOD UREA NITROGEN 72 mg/dl (7-20); CALCIUM 8.3 mg/dl (8.4-10.2); CARBON DIOXIDE 27 mmol/L (21-31); CHLORIDE 102 mmol/L (97-110); CREATININE 1.52 mg/dl (0.44-1.00); GLUCOSE 167 mg/dl (70-220); POTASSIUM 4.2 mmol/L (3.5-5.1); SODIUM 141 mmol/L (135-144)
[2017-10-08] MEDS: PANTOPRAZOLE 40 MG INJ IV (06:13)
[2017-10-08] MEDS: AMPICILLIN 1 GM/NS (PMX) 50 ML IVPB ×3 (06:13→21:55)
[2017-10-08] MEDS: LEVOTHYROXINE 50 MCG TAB GTB (06:13)
[2017-10-08 06:33] LABS: MAGNESIUM 2.1 mg/dl (1.7-2.5)
[2017-10-08 06:33] LABS: PHOSPHORUS 3.5 mg/dl (2.5-4.9)
[2017-10-08] MEDS: SODIUM HYPOCHLORITE 0.125% 473 ML BTL IRR ×3 (09:00→21:03)
[2017-10-08] MEDS: COLLAGENASE 30 GM TUBE TOP ×3 (09:00→21:10)
[2017-10-08] MEDS: ASCORBIC ACID 500 MG TAB NGT ×2 (09:12→21:02)
[2017-10-08] MEDS: CHOLECALCIFEROL 1,000 UNIT TAB GTB (09:12)
[2017-10-08] MEDS: L ACIDOPHIL/B LACTIS/B LONGUM CAPSULE PO ×2 (09:12→21:02)
[2017-10-08] MEDS: METOPROLOL 25 MG TAB GTB ×2 (09:13→21:03)
[2017-10-08] MEDS: ALBUMIN HUMAN 25% 100 ML IV ×2 (11:25→21:02)
[2017-10-08] MEDS: PERMETHRIN 5% 60 GM CR TOP (21:51)
[2017-10-09] MEDS: Insulin NOVOLOG SS MILD Algorithm (NPO/TPN/ENTERAL FEEDS) SC ×4 (01:02→13:35)
[2017-10-09] MEDS: ALBUMIN HUMAN 25% 100 ML IV (03:15)
[2017-10-09 05:37] LABS: ADD MAN DIFF? NO
[2017-10-09] MEDS: PANTOPRAZOLE 40 MG INJ IV (05:37)
[2017-10-09] MEDS: AMPICILLIN 1 GM/NS (PMX) 50 ML IVPB ×3 (05:37→21:51)
[2017-10-09 05:43] LABS: WHITE BLOOD COUNT 5.5 10^3/ul (4.8-10.8)
[2017-10-09 05:43] LABS: ABNORMAL IP MESSAGE 1; BASOPHILS % 0.4 % (0.0-2.0); EOSINOPHILS # 0.6 10^3/ul (0.0-0.5); EOSINOPHILS % 11.5 % (0.0-7.0); HEMATOCRIT 25.1 % (37.0-47.0); HEMOGLOBIN 7.9 g/dl (12.0-16.0); LYMPHOCYTES # 1.1 10^3/ul (0.8-2.9); LYMPHOCYTES % 20.3 % (15.0-51.0); MEAN CORPUSCULAR HEMOGLOBIN 30.9 pg (29.0-33.0); MEAN CORPUSCULAR HGB CONC 31.5 g/dl (32.0-37.0); MEAN PLATELET VOLUME 10.9 fl (7.4-10.4); MONOCYTE # 0.1 10^3/ul (0.3-0.9); MONOCYTES % 2.4 % (0.0-11.0); NEUTROPHIL # 3.6 10^3/ul (1.6-7.5); NEUTROPHILS % 65.2 % (39.0-77.0); PLATELET COUNT 90 10^3/UL (140-415); RED BLOOD COUNT 2.56 10^6/ul (4.20-5.40); RED CELL DISTRIBUTION WIDTH 18.2 % (11.5-14.5)
[2017-10-09] MEDS: LEVOTHYROXINE 50 MCG TAB GTB (06:04)
[2017-10-09 06:16] LABS: PHOSPHORUS 3.6 mg/dl (2.5-4.9)
[2017-10-09 06:16] LABS: MAGNESIUM 2.2 mg/dl (1.7-2.5)
[2017-10-09 06:17] LABS: ANION GAP 22 (8-16); BLOOD UREA NITROGEN 78 mg/dl (7-20); CARBON DIOXIDE 23 mmol/L (21-31); CHLORIDE 103 mmol/L (97-110); CREATININE 1.52 mg/dl (0.44-1.00); GLUCOSE 124 mg/dl (70-220); POTASSIUM 4.4 mmol/L (3.5-5.1); SODIUM 144 mmol/L (135-144)
[2017-10-09 06:30] LABS: POSITIVE DIFF @See below
[2017-10-09] MEDS: SODIUM HYPOCHLORITE 0.125% 473 ML BTL IRR ×2 (09:00→21:50)
[2017-10-09] MEDS: COLLAGENASE 30 GM TUBE TOP ×2 (09:00→21:49)
[2017-10-09] MEDS: CHOLECALCIFEROL 1,000 UNIT TAB GTB (09:48)
[2017-10-09] MEDS: L ACIDOPHIL/B LACTIS/B LONGUM CAPSULE PO ×2 (09:48→21:50)
[2017-10-09] MEDS: ASCORBIC ACID 500 MG TAB NGT ×2 (09:48→21:50)
[2017-10-09] MEDS: METOPROLOL 25 MG TAB GTB ×2 (09:48→21:51)
[2017-10-09] MEDS: ALBUTEROL 0.083% (NEB) 2.5 MG/3 ML AMP NEB (10:53)
[2017-10-09] MEDS: FLUCONAZOLE 100 MG/NS (PMX) 50 ML IVPB (18:40)
[2017-10-09] MEDS: EPOETIN ALFA (NESRD) 3,000 UNITS/ML VIAL SC (18:44)
[2017-10-10] MEDS: PANTOPRAZOLE 40 MG INJ IV (05:37)
[2017-10-10] MEDS: AMPICILLIN 1 GM/NS (PMX) 50 ML IVPB ×3 (05:37→21:57)
[2017-10-10] MEDS: LEVOTHYROXINE 50 MCG TAB GTB (06:26)
[2017-10-10 06:53] LABS: ANION GAP 16 (8-16); BLOOD UREA NITROGEN 85 mg/dl (7-20); CALCIUM 8.8 mg/dl (8.4-10.2); CARBON DIOXIDE 29 mmol/L (21-31); CHLORIDE 103 mmol/L (97-110); CREATININE 1.57 mg/dl (0.44-1.00); GLUCOSE 210 mg/dl (70-220); POTASSIUM 4.2 mmol/L (3.5-5.1); SODIUM 144 mmol/L (135-144)
[2017-10-10] MEDS: COLLAGENASE 30 GM TUBE TOP ×2 (09:00→21:58)
[2017-10-10] MEDS: SODIUM HYPOCHLORITE 0.125% 473 ML BTL IRR ×2 (09:00→21:58)
[2017-10-10] MEDS: METOPROLOL 25 MG TAB GTB ×2 (09:13→21:58)
[2017-10-10] MEDS: CHOLECALCIFEROL 1,000 UNIT TAB GTB (09:13)
[2017-10-10] MEDS: FUROSEMIDE 20 MG INJ IV (09:14)
[2017-10-10] MEDS: L ACIDOPHIL/B LACTIS/B LONGUM CAPSULE PO ×2 (09:14→22:03)
[2017-10-10] MEDS: ASCORBIC ACID 500 MG TAB NGT ×2 (09:14→21:58)
[2017-10-10] MEDS: FLUCONAZOLE 100 MG TAB PO (10:52)
[2017-10-10] MEDS: ALBUTEROL/IPRATROPIUM (NEB) 3 ML AMP INH (13:31)
[2017-10-10 17:04] LABS: ADD UMIC YES; UR ASCORBIC ACID 40 mg/dL (NEGATIVE); UR BILIRUBIN (Dip) NEGATIVE (NEGATIVE); UR BLOOD (Dip) 2+ mg/dL (NEGATIVE); UR BUDDING YEAST MANY /HPF (NONE SEEN); UR CLARITY CLOUDY (CLEAR); UR COLOR YELLOW (YELLOW); UR GLUCOSE (Dip) NEGATIVE (NEGATIVE); UR HYALINE CAST FEW /HPF (NONE SEEN); UR KETONES (Dip) NEGATIVE (NEGATIVE); UR LEUKOCYTE ESTERASE (Dip) 3+ Leu/ul (NEGATIVE); UR MUCUS FEW /HPF (NONE SEEN); UR NITRITE (Dip) NEGATIVE (NEGATIVE); UR RBC 110 /HPF (0-5); UR SPECIFIC GRAVITY (Dip) 1.012 (1.003-1.030); UR SQUAMOUS EPITHELIAL CELL FEW /HPF (FEW); UR TOTAL PROTEIN (Dip) 2+ mg/dl (NEGATIVE); UR UROBILINOGEN (Dip) NEGATIVE (NEGATIVE); UR WBC 92 /HPF (0-5)
[2017-10-10] MEDS: SOD CHLORIDE 0.45% 1,000 ML IV (18:30)
[2017-10-11] MEDS: PANTOPRAZOLE 40 MG INJ IV (06:16)
[2017-10-11] MEDS: LEVOTHYROXINE 50 MCG TAB GTB (06:16)
[2017-10-11] MEDS: AMPICILLIN 1 GM/NS (PMX) 50 ML IVPB ×3 (06:16→22:25)
[2017-10-11] MEDS: SODIUM HYPOCHLORITE 0.125% 473 ML BTL IRR ×2 (09:18→20:44)
[2017-10-11] MEDS: L ACIDOPHIL/B LACTIS/B LONGUM CAPSULE PO ×2 (09:19→20:43)
[2017-10-11] MEDS: CHOLECALCIFEROL 1,000 UNIT TAB GTB (09:19)
[2017-10-11] MEDS: COLLAGENASE 30 GM TUBE TOP ×2 (09:19→20:44)
[2017-10-11] MEDS: METOPROLOL 25 MG TAB GTB ×2 (09:20→20:42)
[2017-10-11] MEDS: FLUCONAZOLE 100 MG TAB PO (09:20)
[2017-10-11] MEDS: ASCORBIC ACID 500 MG TAB NGT ×2 (09:20→20:43)
[2017-10-12] MEDS: AMPICILLIN 1 GM/NS (PMX) 50 ML IVPB ×3 (05:59→21:10)
[2017-10-12] MEDS: LEVOTHYROXINE 50 MCG TAB GTB (05:59)
[2017-10-12] MEDS: PANTOPRAZOLE 40 MG INJ IV (05:59)
[2017-10-12] MEDS: L ACIDOPHIL/B LACTIS/B LONGUM CAPSULE PO ×2 (08:07→20:59)
[2017-10-12] MEDS: COLLAGENASE 30 GM TUBE TOP ×2 (08:08→21:00)
[2017-10-12] MEDS: CHOLECALCIFEROL 1,000 UNIT TAB GTB (08:08)
[2017-10-12] MEDS: FLUCONAZOLE 100 MG TAB PO (08:08)
[2017-10-12] MEDS: ASCORBIC ACID 500 MG TAB NGT ×2 (08:08→20:59)
[2017-10-12] MEDS: METOPROLOL 25 MG TAB GTB ×2 (08:08→20:59)
[2017-10-12] MEDS: SODIUM HYPOCHLORITE 0.125% 473 ML BTL IRR ×2 (08:09→20:59)
[2017-10-13] MEDS: AMPICILLIN 1 GM/NS (PMX) 50 ML IVPB ×3 (06:01→22:18)
[2017-10-13] MEDS: PANTOPRAZOLE 40 MG INJ IV (06:01)
[2017-10-13] MEDS: LEVOTHYROXINE 50 MCG TAB GTB (06:02)
[2017-10-13 07:14] LABS: ALANINE AMINOTRANSFERASE 20 IU/L (13-69); ALBUMIN 2.6 g/dl (3.3-4.9); ALBUMIN/GLOBULIN RATIO 0.72; ALKALINE PHOSPHATASE 212 IU/L (42-121); ANION GAP 13 (8-16); ASPARTATE AMINO TRANSFERASE 14 IU/L (15-46); BLOOD UREA NITROGEN 78 mg/dl (7-20); CARBON DIOXIDE 31 mmol/L (21-31); CHLORIDE 106 mmol/L (97-110); CREATININE 1.08 mg/dl (0.44-1.00); GLUCOSE 326 mg/dl (70-220); POTASSIUM 3.4 mmol/L (3.5-5.1); SODIUM 147 mmol/L (135-144); TOTAL PROTEIN 6.2 g/dl (6.1-8.1)
[2017-10-13] MEDS: ASCORBIC ACID 500 MG TAB NGT ×2 (09:11→20:44)
[2017-10-13] MEDS: FLUCONAZOLE 100 MG TAB PO (09:11)
[2017-10-13] MEDS: L ACIDOPHIL/B LACTIS/B LONGUM CAPSULE PO ×2 (09:11→20:45)
[2017-10-13] MEDS: CHOLECALCIFEROL 1,000 UNIT TAB GTB (09:11)
[2017-10-13] MEDS: METOPROLOL 25 MG TAB GTB ×2 (09:11→20:45)
[2017-10-13] MEDS: COLLAGENASE 30 GM TUBE TOP ×2 (09:13→20:46)
[2017-10-13] MEDS: SODIUM HYPOCHLORITE 0.125% 473 ML BTL IRR ×2 (09:13→20:46)
[2017-10-13] MEDS: POTASSIUM CHLORIDE 100 ML IVPB ×2 (10:50→12:43)
[2017-10-13] MEDS: CASPOFUNGIN 70 MG in SOD CHLORIDE 0.9% 250 ML IVPB (15:08)
[2017-10-13] MEDS: EPOETIN ALFA (NESRD) 3,000 UNITS/ML VIAL SC (22:26)
[2017-10-14] MEDS: PANTOPRAZOLE 40 MG INJ IV (06:01)
[2017-10-14] MEDS: AMPICILLIN 1 GM/NS (PMX) 50 ML IVPB ×3 (06:01→21:35)
[2017-10-14] MEDS: LEVOTHYROXINE 50 MCG TAB GTB (06:05)
[2017-10-14 06:15] LABS: ALBUMIN 2.8 g/dl (3.3-4.9); ANION GAP 12 (8-16); BLOOD UREA NITROGEN 80 mg/dl (7-20); CARBON DIOXIDE 33 mmol/L (21-31); CHLORIDE 110 mmol/L (97-110); CREATININE 0.97 mg/dl (0.44-1.00); GLUCOSE 384 mg/dl (70-220); PHOSPHORUS 1.3 mg/dl (2.5-4.9); POTASSIUM 4.3 mmol/L (3.5-5.1); SODIUM 151 mmol/L (135-144)
[2017-10-14 07:26] LABS: ERYTHROCYTE SEDIMENTATION RATE 40 mm/Hr (0-30)
[2017-10-14 08:36] LABS: C-REACTIVE PROTEIN 5.1 mg/dl (0.0-0.9)
[2017-10-14] MEDS: L ACIDOPHIL/B LACTIS/B LONGUM CAPSULE PO ×2 (08:50→21:26)
[2017-10-14] MEDS: CHOLECALCIFEROL 1,000 UNIT TAB GTB (08:51)
[2017-10-14] MEDS: ASCORBIC ACID 500 MG TAB NGT ×2 (08:51→21:26)
[2017-10-14] MEDS: METOPROLOL 25 MG TAB GTB ×2 (08:51→21:26)
[2017-10-14] MEDS: CASPOFUNGIN 50 MG in SOD CHLORIDE 0.9% 250 ML IVPB (12:01)
[2017-10-14] MEDS: INSULIN ASPART [NOVOLOG] 3 ML PEN SC ×3 (12:09→18:31)
[2017-10-14] MEDS: SODIUM HYPOCHLORITE 0.125% 473 ML BTL IRR ×2 (14:00→21:27)
[2017-10-14] MEDS: COLLAGENASE 30 GM TUBE TOP ×2 (14:01→21:27)
[2017-10-14] MEDS: SODIUM PHOSPHATE 40 MEQ in SOD CHLORIDE 0.9% 250 ML IVPB (15:53)
[2017-10-14] MEDS: INSULIN GLARGINE [LANtus] 3 ML PEN SC (21:34)
[2017-10-15] MEDS: INSULIN ASPART [NOVOLOG] 3 ML PEN SC ×4 (00:13→18:09)
[2017-10-15] MEDS: LEVOTHYROXINE 50 MCG TAB GTB (06:13)
[2017-10-15] MEDS: PANTOPRAZOLE 40 MG INJ IV (06:13)
[2017-10-15] MEDS: AMPICILLIN 1 GM/NS (PMX) 50 ML IVPB ×3 (06:18→21:45)
[2017-10-15 06:59] LABS: ANION GAP 12 (8-16); BLOOD UREA NITROGEN 85 mg/dl (7-20); CALCIUM 8.7 mg/dl (8.4-10.2); CARBON DIOXIDE 31 mmol/L (21-31); CHLORIDE 111 mmol/L (97-110); CREATININE 0.89 mg/dl (0.44-1.00); GLUCOSE 180 mg/dl (70-220); POTASSIUM 4.5 mmol/L (3.5-5.1); SODIUM 149 mmol/L (135-144)
[2017-10-15 08:03] LABS: MAGNESIUM 1.8 mg/dl (1.7-2.5)
[2017-10-15 08:03] LABS: PHOSPHORUS 2.4 mg/dl (2.5-4.9)
[2017-10-15] MEDS: L ACIDOPHIL/B LACTIS/B LONGUM CAPSULE PO ×2 (09:04→21:14)
[2017-10-15] MEDS: CHOLECALCIFEROL 1,000 UNIT TAB GTB (09:04)
[2017-10-15] MEDS: SODIUM HYPOCHLORITE 0.125% 473 ML BTL IRR ×2 (09:05→21:15)
[2017-10-15] MEDS: ASCORBIC ACID 500 MG TAB NGT ×2 (09:05→21:14)
[2017-10-15] MEDS: METOPROLOL 25 MG TAB GTB ×2 (09:05→21:19)
[2017-10-15] MEDS: COLLAGENASE 30 GM TUBE TOP ×2 (09:06→21:15)
[2017-10-15 11:47] LABS: WHITE BLOOD COUNT 7.9 10^3/ul (4.8-10.8)
[2017-10-15 11:47] LABS: ABNORMAL IP MESSAGE 1; HEMATOCRIT 22.9 % (37.0-47.0); MEAN CORPUSCULAR HEMOGLOBIN 31.1 pg (29.0-33.0); MEAN CORPUSCULAR HGB CONC 30.6 g/dl (32.0-37.0); MEAN CORPUSCULAR VOLUME 101.8 fl (82.0-101.0); NUCLEATED RED BLOOD CELLS% 3.8 /100WBC (0.0-0.0); RED BLOOD COUNT 2.25 10^6/ul (4.20-5.40); RED CELL DISTRIBUTION WIDTH 18.4 % (11.5-14.5)
[2017-10-15 11:48] LABS: ADD MAN DIFF? YES; PLATELET COUNT 51 10^3/UL (140-415); POSITIVE DIFF @See below
[2017-10-15] MEDS: CASPOFUNGIN 50 MG in SOD CHLORIDE 0.9% 250 ML IVPB (11:58)
[2017-10-15 12:28] LABS: ANISOCYTOSIS 1+ (0-0); BAND NEUTROPHILS #M 0.3 10^3/ul (0.0-0.6); BAND NEUTROPHILS % (M) 5 % (0-4); BASOPHILS % (M) 1 % (0-2); EOSINOPHILS % (M) 3 % (0-7); ERYTHROBLAST% (NRBC) (M) 4 % (0-0); GIANT THROMBO% (M) 1 % (0-0); HYPOCHROMASIA 1+ (0-0); LYMPHOCYTES #M 1.2 10^3/ul (0.8-2.9); LYMPHOCYTES % (M) 16 % (15-51); MONOCYTE #M 0.7 10^3/ul (0.3-0.9); MONOCYTES % (M) 9 % (0-11); MYELOCYTES % (M) 1 % (0-0); PLATELET ESTIMATE SIG DECREASED; POIKILOCYTOSIS 1+ (0-0); POLYCHROMASIA 3+ (0-0); SEG NEUT #M 5.2 10^3/ul (1.6-7.5); SEGMENTED NEUTROPHILS (M) % 65 % (39-77); SMUDGE%M 5 % (0-0)
[2017-10-15] MEDS: NEUTRA-PHOS 250 MG PACKET PO ×2 (12:50→21:14)
[2017-10-15] MEDS: INSULIN GLARGINE [LANtus] 3 ML PEN SC (21:39)
[2017-10-16] MEDS: INSULIN ASPART [NOVOLOG] 3 ML PEN SC ×5 (01:24→23:32)
[2017-10-16] MEDS: DIPHENHYDRAMINE 50 MG INJ IV (02:18)
[2017-10-16] MEDS: ACETAMINOPHEN 325 MG TAB PO (02:19)
[2017-10-16] MEDS: SOD CHLORIDE 0.9% 250 ML IV* (02:19)
[2017-10-16] MEDS: FUROSEMIDE 40 MG INJ IV (02:20)
[2017-10-16 02:32] LABS: IMMEDIATE SPIN CROSSMATCH 1 1
[2017-10-16] MEDS: AMPICILLIN 1 GM/NS (PMX) 50 ML IVPB ×3 (05:41→21:33)
[2017-10-16] MEDS: PANTOPRAZOLE 40 MG INJ IV (05:42)
[2017-10-16] MEDS: LEVOTHYROXINE 50 MCG TAB GTB (06:02)
[2017-10-16] MEDS: NEUTRA-PHOS 250 MG PACKET PO ×2 (08:24→13:39)
[2017-10-16] MEDS: CHOLECALCIFEROL 1,000 UNIT TAB GTB (08:25)
[2017-10-16] MEDS: L ACIDOPHIL/B LACTIS/B LONGUM CAPSULE PO ×2 (08:25→21:28)
[2017-10-16] MEDS: ASCORBIC ACID 500 MG TAB NGT ×2 (08:25→21:28)
[2017-10-16] MEDS: COLLAGENASE 30 GM TUBE TOP ×2 (08:26→21:29)
[2017-10-16] MEDS: METOPROLOL 25 MG TAB GTB ×2 (08:26→21:28)
[2017-10-16] MEDS: SODIUM HYPOCHLORITE 0.125% 473 ML BTL IRR ×2 (08:26→21:29)
[2017-10-16] MEDS: CASPOFUNGIN 50 MG in SOD CHLORIDE 0.9% 250 ML IVPB (12:02)
[2017-10-16 13:07] LABS: ABNORMAL IP MESSAGE 1; HEMATOCRIT 27.9 % (37.0-47.0); HEMOGLOBIN 8.5 g/dl (12.0-16.0); MEAN CORPUSCULAR HEMOGLOBIN 30.2 pg (29.0-33.0); MEAN CORPUSCULAR HGB CONC 30.5 g/dl (32.0-37.0); MEAN CORPUSCULAR VOLUME 99.3 fl (82.0-101.0); NUCLEATED RED BLOOD CELLS% 11.7 /100WBC (0.0-0.0); PLATELET COUNT 74 10^3/UL (140-415); RED BLOOD COUNT 2.81 10^6/ul (4.20-5.40); RED CELL DISTRIBUTION WIDTH 19.3 % (11.5-14.5)
[2017-10-16 13:20] LABS: POSITIVE DIFF @See below
[2017-10-16 13:21] LABS: ADD MAN DIFF? YES
[2017-10-16 13:23] LABS: ANION GAP 15 (8-16); BLOOD UREA NITROGEN 86 mg/dl (7-20); CALCIUM 8.1 mg/dl (8.4-10.2); CARBON DIOXIDE 32 mmol/L (21-31); CHLORIDE 105 mmol/L (97-110); CREATININE 1.04 mg/dl (0.44-1.00); GLUCOSE 125 mg/dl (70-220); POTASSIUM 4.8 mmol/L (3.5-5.1); SODIUM 147 mmol/L (135-144)
[2017-10-16 13:44] LABS: ANISOCYTOSIS 1+ (0-0); BAND NEUTROPHILS #M 0.1 10^3/ul (0.0-0.6); BAND NEUTROPHILS % (M) 2 % (0-4); EOSINOPHILS % (M) 7 % (0-7); ERYTHROBLAST% (NRBC) (M) 11 % (0-0); GIANT THROMBO% (M) 19 % (0-0); LYMPHOCYTES #M 1.4 10^3/ul (0.8-2.9); LYMPHOCYTES % (M) 20 % (15-51); MONOCYTE #M 0.4 10^3/ul (0.3-0.9); MONOCYTES % (M) 7 % (0-11); PLATELET ESTIMATE DECREASED; POIKILOCYTOSIS 1+ (0-0); POLYCHROMASIA 2+ (0-0); SEG NEUT #M 4.5 10^3/ul (1.6-7.5); SEGMENTED NEUTROPHILS (M) % 64 % (39-77); SMUDGE%M 6 % (0-0)
[2017-10-16] MEDS: DEXTROSE 5% 1,000 ML IV (16:00)
[2017-10-16] MEDS: EPOETIN ALFA (NESRD) 3,000 UNITS/ML VIAL SC (16:52)
[2017-10-16] MEDS: INSULIN GLARGINE [LANtus] 3 ML PEN SC (21:25)
[2017-10-17] MEDS: AMPICILLIN 1 GM/NS (PMX) 50 ML IVPB ×3 (05:54→22:04)
[2017-10-17] MEDS: PANTOPRAZOLE 40 MG INJ IV (05:54)
[2017-10-17] MEDS: LEVOTHYROXINE 50 MCG TAB GTB (06:01)
[2017-10-17] MEDS: INSULIN ASPART [NOVOLOG] 3 ML PEN SC ×3 (06:02→18:47)
[2017-10-17 06:14] LABS: ADD MAN DIFF? NO
[2017-10-17 06:23] LABS: ABNORMAL IP MESSAGE 1; BASOPHILS % 0.4 % (0.0-2.0); EOSINOPHILS # 0.1 10^3/ul (0.0-0.5); EOSINOPHILS % 0.6 % (0.0-7.0); HEMATOCRIT 30.2 % (37.0-47.0); HEMOGLOBIN 9.1 g/dl (12.0-16.0); LYMPHOCYTES # 0.7 10^3/ul (0.8-2.9); LYMPHOCYTES % 8.8 % (15.0-51.0); MEAN CORPUSCULAR HEMOGLOBIN 30.4 pg (29.0-33.0); MEAN CORPUSCULAR HGB CONC 30.1 g/dl (32.0-37.0); MEAN PLATELET VOLUME 13.4 fl (7.4-10.4); MONOCYTE # 0.6 10^3/ul (0.3-0.9); NEUTROPHIL # 6.1 10^3/ul (1.6-7.5); NEUTROPHILS % 78.4 % (39.0-77.0); NUCLEATED RED BLOOD CELLS # 0.6 10^3/ul (0.0-0.0); NUCLEATED RED BLOOD CELLS% 8.2 /100WBC (0.0-0.0); PLATELET COUNT 109 10^3/UL (140-415); RED BLOOD COUNT 2.99 10^6/ul (4.20-5.40); RED CELL DISTRIBUTION WIDTH 19.6 % (11.5-14.5)
[2017-10-17 06:23] LABS: WHITE BLOOD COUNT 7.8 10^3/ul (4.8-10.8)
[2017-10-17 06:30] LABS: POSITIVE DIFF @See below
[2017-10-17 06:46] LABS: PHOSPHORUS 5.5 mg/dl (2.5-4.9)
[2017-10-17 06:46] LABS: MAGNESIUM 1.8 mg/dl (1.7-2.5)
[2017-10-17 06:53] LABS: ANION GAP 12 (8-16); BLOOD UREA NITROGEN 95 mg/dl (7-20); CALCIUM 7.9 mg/dl (8.4-10.2); CARBON DIOXIDE 34 mmol/L (21-31); CHLORIDE 104 mmol/L (97-110); CREATININE 1.13 mg/dl (0.44-1.00); GLUCOSE 251 mg/dl (70-220); POTASSIUM 5.7 mmol/L (3.5-5.1); SODIUM 144 mmol/L (135-144)
[2017-10-17] MEDS: L ACIDOPHIL/B LACTIS/B LONGUM CAPSULE PO ×2 (08:44→21:03)
[2017-10-17] MEDS: SODIUM HYPOCHLORITE 0.125% 473 ML BTL IRR ×2 (08:45→21:07)
[2017-10-17] MEDS: COLLAGENASE 30 GM TUBE TOP ×2 (08:45→21:07)
[2017-10-17] MEDS: CHOLECALCIFEROL 1,000 UNIT TAB GTB (08:45)
[2017-10-17] MEDS: ASCORBIC ACID 500 MG TAB NGT ×2 (08:45→21:03)
[2017-10-17] MEDS: METOPROLOL 25 MG TAB GTB ×2 (08:46→21:03)
[2017-10-17] MEDS: BENAZEPRIL 5 MG TAB NGT (08:46)
[2017-10-17] MEDS: ALBUTEROL/IPRATROPIUM (NEB) 3 ML AMP INH (09:18)
[2017-10-17] MEDS: FUROSEMIDE 40 MG INJ IV (09:38)
[2017-10-17 10:06] LABS: AADO2 Arterial 14.2 mmHg (7.0-24.0); Allen Test ACCEPTAB; Arterial Base Excess -2.4 mmol/L (-3.0-3); Arterial Blood Gas Oxygen Sat 92.6 mmHG (95.0-100.0); Arterial COHb 0.8 % (0.0-3.0); Arterial Fraction of Oxyhgb 91.7 % (93.0-99.0); Arterial HCO3 29.6 mmol/L (22.0-26.0); Arterial MetHb 0.2 % (0.0-1.5); Arterial Total Hemglobin 11.4 g/dl (12.0-18.0); Arterial pCO2 102.7 mmhg (35-45); MODE NASAL CANNULA; Site Right Radial
[2017-10-17 11:16] LABS: ADD MAN DIFF? NO
[2017-10-17 11:22] LABS: ABNORMAL IP MESSAGE 1; BASOPHILS % 0.4 % (0.0-2.0); EOSINOPHILS % 0.5 % (0.0-7.0); LYMPHOCYTES # 0.5 10^3/ul (0.8-2.9); MEAN CORPUSCULAR HEMOGLOBIN 30.7 pg (29.0-33.0); MEAN CORPUSCULAR VOLUME 102.4 fl (82.0-101.0); MEAN PLATELET VOLUME 13.4 fl (7.4-10.4); MONOCYTE # 0.7 10^3/ul (0.3-0.9); MONOCYTES % 9.1 % (0.0-11.0); NEUTROPHIL # 6.1 10^3/ul (1.6-7.5); NEUTROPHILS % 80.4 % (39.0-77.0); NUCLEATED RED BLOOD CELLS # 0.7 10^3/ul (0.0-0.0); NUCLEATED RED BLOOD CELLS% 9.2 /100WBC (0.0-0.0); PLATELET COUNT 114 10^3/UL (140-415); RED BLOOD COUNT 2.93 10^6/ul (4.20-5.40); RED CELL DISTRIBUTION WIDTH 19.2 % (11.5-14.5)
[2017-10-17 11:22] LABS: WHITE BLOOD COUNT 7.6 10^3/ul (4.8-10.8)
[2017-10-17 11:30] LABS: POSITIVE DIFF @See below
[2017-10-17 11:38] LABS: LACTIC ACID 1.1 mmol/L (0.5-2.0)
[2017-10-17 11:38] LABS: AMMONIA 42 umol/l (9-30)
[2017-10-17 11:39] LABS: ALANINE AMINOTRANSFERASE 66 IU/L (13-69); ALBUMIN 2.8 g/dl (3.3-4.9); ALBUMIN/GLOBULIN RATIO 0.73; ALKALINE PHOSPHATASE 276 IU/L (42-121); ANION GAP 16 (8-16); ASPARTATE AMINO TRANSFERASE 74 IU/L (15-46); BILIRUBIN,INDIRECT 0.1 mg/dl (0-1.1); BILIRUBIN,TOTAL 0.1 mg/dl (0.2-1.3); BLOOD UREA NITROGEN 97 mg/dl (7-20); CALCIUM 7.8 mg/dl (8.4-10.2); CARBON DIOXIDE 29 mmol/L (21-31); CHLORIDE 100 mmol/L (97-110); CREATININE 1.19 mg/dl (0.44-1.00); GLUCOSE 216 mg/dl (70-220); POTASSIUM 5.4 mmol/L (3.5-5.1); SODIUM 140 mmol/L (135-144); TOTAL PROTEIN 6.6 g/dl (6.1-8.1)
[2017-10-17] MEDS: CASPOFUNGIN 50 MG in SOD CHLORIDE 0.9% 250 ML IVPB (12:00)
[2017-10-17] MEDS: DEXTROSE 5% 1,000 ML IV (13:09)
[2017-10-17 15:31] LABS: Allen Test ACCEPTAB; Arterial Base Excess -0.1 mmol/L (-3.0-3); Arterial Blood Gas Oxygen Sat 98.4 mmHG (95.0-100.0); Arterial COHb 0.6 % (0.0-3.0); Arterial Fraction of Oxyhgb 97.6 % (93.0-99.0); Arterial HCO3 28.2 mmol/L (22.0-26.0); Arterial MetHb 0.2 % (0.0-1.5); Arterial Total Hemglobin 10.6 g/dl (12.0-18.0); Arterial pCO2 67.1 mmhg (35-45); Blood Gas IEPAP 15/5; MODE MASK - BIPAP; Site Right Radial
[2017-10-17] MEDS: NA POLYST SULFON 15 GM/60 ML BTL PO (18:29)
[2017-10-17] MEDS: INSULIN GLARGINE [LANtus] 3 ML PEN SC (21:16)
[2017-10-18] MEDS: INSULIN ASPART [NOVOLOG] 3 ML PEN SC ×4 (00:25→17:15)
[2017-10-18] MEDS: LEVOTHYROXINE 50 MCG TAB GTB (06:34)
[2017-10-18] MEDS: PANTOPRAZOLE 40 MG INJ IV (06:34)
[2017-10-18] MEDS: AMPICILLIN 1 GM/NS (PMX) 50 ML IVPB ×3 (06:34→21:52)
[2017-10-18 08:32] LABS: ADD MAN DIFF? NO
[2017-10-18 08:58] LABS: ANION GAP 13 (8-16); BLOOD UREA NITROGEN 102 mg/dl (7-20); CALCIUM 7.6 mg/dl (8.4-10.2); CARBON DIOXIDE 32 mmol/L (21-31); CHLORIDE 104 mmol/L (97-110); CREATININE 1.05 mg/dl (0.44-1.00); GLUCOSE 59 mg/dl (70-220); POTASSIUM 4.3 mmol/L (3.5-5.1); SODIUM 145 mmol/L (135-144)
[2017-10-18] MEDS: DEXTROSE 50% 50 ML SYRINGE IV ×2 (09:31→10:55)
[2017-10-18 09:32] LABS: WHITE BLOOD COUNT 8.5 10^3/ul (4.8-10.8)
[2017-10-18 09:32] LABS: ABNORMAL IP MESSAGE 1; BASOPHILS % 0.1 % (0.0-2.0); EOSINOPHILS # 0.2 10^3/ul (0.0-0.5); EOSINOPHILS % 1.8 % (0.0-7.0); HEMATOCRIT 26.9 % (37.0-47.0); HEMOGLOBIN 8.3 g/dl (12.0-16.0); LYMPHOCYTES # 0.5 10^3/ul (0.8-2.9); LYMPHOCYTES % 6.2 % (15.0-51.0); MEAN CORPUSCULAR HEMOGLOBIN 30.3 pg (29.0-33.0); MEAN CORPUSCULAR HGB CONC 30.9 g/dl (32.0-37.0); MEAN CORPUSCULAR VOLUME 98.2 fl (82.0-101.0); MEAN PLATELET VOLUME 12.7 fl (7.4-10.4); MONOCYTE # 0.7 10^3/ul (0.3-0.9); MONOCYTES % 7.9 % (0.0-11.0); NEUTROPHIL # 7.1 10^3/ul (1.6-7.5); NEUTROPHILS % 83.4 % (39.0-77.0); NUCLEATED RED BLOOD CELLS # 0.3 10^3/ul (0.0-0.0); NUCLEATED RED BLOOD CELLS% 3.6 /100WBC (0.0-0.0); PLATELET COUNT 124 10^3/UL (140-415); RED BLOOD COUNT 2.74 10^6/ul (4.20-5.40); RED CELL DISTRIBUTION WIDTH 18.9 % (11.5-14.5)
[2017-10-18 09:33] LABS: POSITIVE DIFF @See below
[2017-10-18] MEDS: L ACIDOPHIL/B LACTIS/B LONGUM CAPSULE PO ×2 (09:34→21:51)
[2017-10-18] MEDS: CHOLECALCIFEROL 1,000 UNIT TAB GTB (09:34)
[2017-10-18] MEDS: ASCORBIC ACID 500 MG TAB NGT ×2 (09:34→21:52)
[2017-10-18] MEDS: BENAZEPRIL 5 MG TAB NGT (09:34)
[2017-10-18] MEDS: METOPROLOL 25 MG TAB GTB ×2 (09:34→21:52)
[2017-10-18] MEDS: COLLAGENASE 30 GM TUBE TOP ×2 (09:35→21:53)
[2017-10-18] MEDS: SODIUM HYPOCHLORITE 0.125% 473 ML BTL IRR ×2 (09:35→21:53)
[2017-10-18 10:03] LABS: MAGNESIUM 1.8 mg/dl (1.7-2.5)
[2017-10-18 10:03] LABS: PHOSPHORUS 4.9 mg/dl (2.5-4.9)
[2017-10-18] MEDS: DEXTROSE 5%-0.45% NACL 1,000 ML IV (17:28)
[2017-10-19] MEDS: INSULIN ASPART [NOVOLOG] 3 ML PEN SC ×5 (05:45→23:54)
[2017-10-19] MEDS: AMPICILLIN 1 GM/NS (PMX) 50 ML IVPB ×3 (05:45→21:07)
[2017-10-19] MEDS: PANTOPRAZOLE 40 MG INJ IV (05:45)
[2017-10-19] MEDS: LEVOTHYROXINE 50 MCG TAB GTB (07:18)
[2017-10-19 07:28] LABS: ANION GAP 14 (8-16); BLOOD UREA NITROGEN 93 mg/dl (7-20); CALCIUM 7.8 mg/dl (8.4-10.2); CARBON DIOXIDE 33 mmol/L (21-31); CHLORIDE 102 mmol/L (97-110); CREATININE 1.02 mg/dl (0.44-1.00); GLUCOSE 110 mg/dl (70-220); POTASSIUM 3.8 mmol/L (3.5-5.1); SODIUM 145 mmol/L (135-144)
[2017-10-19] MEDS: L ACIDOPHIL/B LACTIS/B LONGUM CAPSULE PO ×2 (09:10→21:06)
[2017-10-19] MEDS: COLLAGENASE 30 GM TUBE TOP ×2 (09:10→21:08)
[2017-10-19] MEDS: CHOLECALCIFEROL 1,000 UNIT TAB GTB (09:10)
[2017-10-19] MEDS: SODIUM HYPOCHLORITE 0.125% 473 ML BTL IRR ×2 (09:10→21:10)
[2017-10-19] MEDS: ASCORBIC ACID 500 MG TAB NGT ×2 (09:10→21:06)
[2017-10-19] MEDS: METOPROLOL 25 MG TAB GTB ×2 (09:10→21:00)
[2017-10-19] MEDS: FUROSEMIDE 40 MG INJ IV (13:53)
[2017-10-19] MEDS: DEXTROSE 5%-0.45% NACL 1,000 ML IV ×2 (17:48→21:10)
[2017-10-19 19:38] LABS: Allen Test ACCEPTAB; Arterial Base Excess 6.4 mmol/L (-3.0-3); Arterial Blood Gas Oxygen Sat 97.9 mmHG (95.0-100.0); Arterial COHb 0.2 % (0.0-3.0); Arterial Fraction of Oxyhgb 97.4 % (93.0-99.0); Arterial HCO3 33.4 mmol/L (22.0-26.0); Arterial MetHb 0.3 % (0.0-1.5); Arterial Total Hemglobin 10.2 g/dl (12.0-18.0); Arterial pCO2 61.9 mmhg (35-45); Blood Gas IEPAP 15/5; Blood Gas PS 10; MODE MASK - BIPAP; Site Right Radial
[2017-10-20] MEDS: PANTOPRAZOLE (EC) 40 MG TAB PO (05:49)
[2017-10-20] MEDS: LEVOTHYROXINE 50 MCG TAB GTB (05:49)
[2017-10-20] MEDS: AMPICILLIN 1 GM/NS (PMX) 50 ML IVPB ×3 (05:49→22:07)
[2017-10-20] MEDS: INSULIN ASPART [NOVOLOG] 3 ML PEN SC ×3 (06:47→17:59)
[2017-10-20 07:47] LABS: ADD MAN DIFF? NO
[2017-10-20 07:56] LABS: ABNORMAL IP MESSAGE 1; BASOPHILS % 0.4 % (0.0-2.0); EOSINOPHILS # 0.4 10^3/ul (0.0-0.5); EOSINOPHILS % 5.9 % (0.0-7.0); HEMATOCRIT 28.2 % (37.0-47.0); HEMOGLOBIN 8.6 g/dl (12.0-16.0); LYMPHOCYTES # 0.6 10^3/ul (0.8-2.9); LYMPHOCYTES % 7.5 % (15.0-51.0); MEAN CORPUSCULAR HGB CONC 30.5 g/dl (32.0-37.0); MEAN CORPUSCULAR VOLUME 101.8 fl (82.0-101.0); MONOCYTE # 0.5 10^3/ul (0.3-0.9); MONOCYTES % 7.1 % (0.0-11.0); NEUTROPHIL # 5.9 10^3/ul (1.6-7.5); NEUTROPHILS % 78.7 % (39.0-77.0); NUCLEATED RED BLOOD CELLS% 0.5 /100WBC (0.0-0.0); PLATELET COUNT 195 10^3/UL (140-415); RED BLOOD COUNT 2.77 10^6/ul (4.20-5.40); RED CELL DISTRIBUTION WIDTH 20.3 % (11.5-14.5)
[2017-10-20 07:56] LABS: WHITE BLOOD COUNT 7.5 10^3/ul (4.8-10.8)
[2017-10-20 07:59] LABS: POSITIVE DIFF @See below
[2017-10-20 08:34] LABS: ANION GAP 16 (8-16); BLOOD UREA NITROGEN 96 mg/dl (7-20); CALCIUM 7.4 mg/dl (8.4-10.2); CARBON DIOXIDE 33 mmol/L (21-31); CHLORIDE 97 mmol/L (97-110); CREATININE 0.93 mg/dl (0.44-1.00); GLUCOSE 144 mg/dl (70-220); SODIUM 142 mmol/L (135-144)
[2017-10-20] MEDS: FUROSEMIDE 40 MG INJ IV ×2 (08:36→17:44)
[2017-10-20] MEDS: L ACIDOPHIL/B LACTIS/B LONGUM CAPSULE PO ×2 (08:36→22:06)
[2017-10-20] MEDS: ASCORBIC ACID 500 MG TAB NGT ×2 (08:36→22:07)
[2017-10-20] MEDS: CHOLECALCIFEROL 1,000 UNIT TAB GTB (08:36)
[2017-10-20] MEDS: SODIUM HYPOCHLORITE 0.125% 473 ML BTL IRR ×2 (08:37→22:08)
[2017-10-20] MEDS: METOPROLOL 25 MG TAB GTB ×2 (08:37→22:07)
[2017-10-20] MEDS: COLLAGENASE 30 GM TUBE TOP ×2 (09:00→22:09)
[2017-10-20 14:40] LABS: AADO2 Arterial 433.8 mmHg (7.0-24.0); Allen Test ACCEPTAB; Arterial Base Excess 3.2 mmol/L (-3.0-3); Arterial HCO3 31.7 mmol/L (22.0-26.0); Arterial pCO2 64.9 mmhg (35-45); MODE MASK - NRB; Site Right Radial
[2017-10-20] MEDS: EPOETIN ALFA (NESRD) 3,000 UNITS/ML VIAL SC (17:46)
[2017-10-21] MEDS: INSULIN ASPART [NOVOLOG] 3 ML PEN SC ×5 (00:44→23:44)
[2017-10-21] MEDS: PANTOPRAZOLE (EC) 40 MG TAB PO (05:39)
[2017-10-21] MEDS: FUROSEMIDE 40 MG INJ IV ×2 (05:39→17:40)
[2017-10-21] MEDS: AMPICILLIN 1 GM/NS (PMX) 50 ML IVPB ×3 (05:41→21:37)
[2017-10-21] MEDS: LEVOTHYROXINE 50 MCG TAB GTB (06:07)
[2017-10-21 07:47] LABS: ADD MAN DIFF? NO
[2017-10-21 07:55] LABS: WHITE BLOOD COUNT 7.4 10^3/ul (4.8-10.8)
[2017-10-21 07:55] LABS: ABNORMAL IP MESSAGE 1; BASOPHILS % 0.3 % (0.0-2.0); EOSINOPHILS # 0.1 10^3/ul (0.0-0.5); EOSINOPHILS % 1.8 % (0.0-7.0); HEMATOCRIT 30.3 % (37.0-47.0); HEMOGLOBIN 9.1 g/dl (12.0-16.0); LYMPHOCYTES # 0.4 10^3/ul (0.8-2.9); LYMPHOCYTES % 4.9 % (15.0-51.0); MEAN CORPUSCULAR HEMOGLOBIN 30.8 pg (29.0-33.0); MEAN CORPUSCULAR VOLUME 102.7 fl (82.0-101.0); MEAN PLATELET VOLUME 12.1 fl (7.4-10.4); MONOCYTE # 0.4 10^3/ul (0.3-0.9); MONOCYTES % 4.8 % (0.0-11.0); NEUTROPHIL # 6.5 10^3/ul (1.6-7.5); NEUTROPHILS % 87.7 % (39.0-77.0); NUCLEATED RED BLOOD CELLS% 0.5 /100WBC (0.0-0.0); PLATELET COUNT 216 10^3/UL (140-415); RED BLOOD COUNT 2.95 10^6/ul (4.20-5.40); RED CELL DISTRIBUTION WIDTH 20.3 % (11.5-14.5)
[2017-10-21 07:59] LABS: POSITIVE DIFF @See below
[2017-10-21 08:30] LABS: MAGNESIUM 1.7 mg/dl (1.7-2.5)
[2017-10-21 08:30] LABS: PHOSPHORUS 4.5 mg/dl (2.5-4.9)
[2017-10-21 08:35] LABS: ANION GAP 12 (8-16); BLOOD UREA NITROGEN 93 mg/dl (7-20); CALCIUM 7.9 mg/dl (8.4-10.2); CARBON DIOXIDE 32 mmol/L (21-31); CHLORIDE 100 mmol/L (97-110); CREATININE 1.01 mg/dl (0.44-1.00); GLUCOSE 225 mg/dl (70-220); POTASSIUM 4.3 mmol/L (3.5-5.1); SODIUM 140 mmol/L (135-144)
[2017-10-21] MEDS: L ACIDOPHIL/B LACTIS/B LONGUM CAPSULE PO ×2 (09:00→21:21)
[2017-10-21] MEDS: ASCORBIC ACID 500 MG TAB NGT ×2 (09:00→21:21)
[2017-10-21] MEDS: CHOLECALCIFEROL 1,000 UNIT TAB GTB (09:00)
[2017-10-21] MEDS: METOPROLOL 25 MG TAB GTB ×2 (09:00→21:21)
[2017-10-21] MEDS ORDERED: COLLAGENASE 5 GM (UD JAR) TOP (15:30)
[2017-10-21] MEDS: SODIUM HYPOCHLORITE 0.125% 473 ML BTL IRR ×2 (15:33→21:21)
[2017-10-21] MEDS: COLLAGENASE 5 GM (UD JAR) TOP (21:21)
[2017-10-22] MEDS: AMPICILLIN 1 GM/NS (PMX) 50 ML IVPB ×3 (05:48→21:23)
[2017-10-22] MEDS: FUROSEMIDE 40 MG INJ IV ×2 (05:48→18:37)
[2017-10-22] MEDS: LANSOPRAZOLE 30 MG CAP GTB (05:48)
[2017-10-22] MEDS: HEPARIN 1000 UNITS/ML 10 ML INJ IV (06:00)
[2017-10-22] MEDS: LIDOCAINE 1% (MDV) 50 ML INJ INJ (06:00)
[2017-10-22] MEDS: INSULIN ASPART [NOVOLOG] 3 ML PEN SC ×3 (06:03→18:30)
[2017-10-22] MEDS: LEVOTHYROXINE 50 MCG TAB GTB (06:27)
[2017-10-22] MEDS: SODIUM HYPOCHLORITE 0.125% 473 ML BTL IRR ×2 (09:00→21:18)
[2017-10-22] MEDS: COLLAGENASE 5 GM (UD JAR) TOP ×2 (09:00→21:18)
[2017-10-22] MEDS: METOPROLOL 25 MG TAB GTB ×2 (09:00→21:00)
[2017-10-22] MEDS: CHOLECALCIFEROL 1,000 UNIT TAB GTB (10:35)
[2017-10-22] MEDS: ASCORBIC ACID 500 MG TAB NGT ×2 (10:36→21:18)
[2017-10-22] MEDS: L ACIDOPHIL/B LACTIS/B LONGUM CAPSULE PO ×2 (10:36→21:18)
[2017-10-22] MEDS ORDERED: ALBUMIN HUMAN 25% 50 ML IV (13:30)
[2017-10-22] MEDS ORDERED: SODIUM CHLORIDE 0.9% 1L BAG IV (13:30)
[2017-10-22 16:29] LABS: HEPATITIS B SURFACE ANTIGEN NEGATIVE (NEGATIVE)
[2017-10-22] MEDS: MANNITOL 25% 50 ML IV ×2 (22:43→23:47)
[2017-10-23] MEDS: INSULIN ASPART [NOVOLOG] 3 ML PEN SC ×2 (00:11→06:43)
[2017-10-23] MEDS: HEPARIN 1000 UNITS/ML 10 ML INJ CATHETER (01:22)
[2017-10-23] MEDS: FUROSEMIDE 40 MG INJ IV (06:06)
[2017-10-23] MEDS: AMPICILLIN 1 GM/NS (PMX) 50 ML IVPB (06:06)
[2017-10-23] MEDS: LANSOPRAZOLE 30 MG CAP GTB (06:06)
[2017-10-23] MEDS: LEVOTHYROXINE 50 MCG TAB GTB (06:41)
[2017-10-23 07:05] LABS: ALANINE AMINOTRANSFERASE 55 IU/L (13-69); ALBUMIN 2.8 g/dl (3.3-4.9); ALBUMIN/GLOBULIN RATIO 0.68; ALKALINE PHOSPHATASE 279 IU/L (42-121); ANION GAP 17 (8-16); ASPARTATE AMINO TRANSFERASE 46 IU/L (15-46); BLOOD UREA NITROGEN 78 mg/dl (7-20); CALCIUM 8.6 mg/dl (8.4-10.2); CARBON DIOXIDE 31 mmol/L (21-31); CHLORIDE 98 mmol/L (97-110); CREATININE 1.01 mg/dl (0.44-1.00); GLUCOSE 212 mg/dl (70-220); POTASSIUM 4.6 mmol/L (3.5-5.1); SODIUM 141 mmol/L (135-144); TOTAL PROTEIN 6.9 g/dl (6.1-8.1)
[2017-10-23] MEDS: LISINOPRIL 5 MG TAB PO (09:30)
[2017-10-23] MEDS: CHOLECALCIFEROL 1,000 UNIT TAB GTB (09:30)
[2017-10-23] MEDS: L ACIDOPHIL/B LACTIS/B LONGUM CAPSULE PO (09:30)
[2017-10-23] MEDS: ASCORBIC ACID 500 MG TAB NGT (09:30)
[2017-10-23] MEDS: METOPROLOL 25 MG TAB GTB (09:30)
[2017-10-23] MEDS: SODIUM HYPOCHLORITE 0.125% 473 ML BTL IRR (09:31)
[2017-10-23] MEDS: COLLAGENASE 5 GM (UD JAR) TOP (09:33)
== END 2017-10-23 10:36 | disposition expired | DRG 853 ==
LOC: MS2 10-03 22:52 → TEL 10-17 12:15 → E/R 12:13 → MS2 12:53
PROC: 05PYX3Z Removal of Infusion Device from Upper Vein, External Approach (ICD-10-PCS; 2017-09-24)
PROC: 0KBP0ZZ Excision of Left Hip Muscle, Open Approach (ICD-10-PCS; 2017-09-27)
PROC: 0JBM0ZZ Excision of Left Upper Leg Subcutaneous Tissue and Fascia, Open Approach (ICD-10-PCS; principal; 2017-09-28)
PROC: 0QB10ZZ Excision of Sacrum, Open Approach (ICD-10-PCS; 2017-09-28)
PROC: 30233N1 Transfusion of Nonautologous Red Blood Cells into Peripheral Vein, Percutaneous Approach (ICD-10-PCS; 2017-10-03)
PROC: 02HV33Z Insertion of Infusion Device into Superior Vena Cava, Percutaneous Approach (ICD-10-PCS; 2017-10-06)
PROC: B548ZZA Ultrasonography of Superior Vena Cava, Guidance (ICD-10-PCS; 2017-10-06)
PROC: 0KBT0ZZ Excision of Left Lower Leg Muscle, Open Approach (ICD-10-PCS; 2017-10-12)
PROC: 5A09457 Assistance with Respiratory Ventilation, 24-96 Consecutive Hours, Continuous Positive Airway Pressure (ICD-10-PCS; 2017-10-17)
PROC: 02HV33Z Insertion of Infusion Device into Superior Vena Cava, Percutaneous Approach (ICD-10-PCS; 2017-10-22)
PROC: B548ZZA Ultrasonography of Superior Vena Cava, Guidance (ICD-10-PCS; 2017-10-22)
PROC: 5A1D70Z Performance of Urinary Filtration, Intermittent, Less than 6 Hours Per Day (ICD-10-PCS; 2017-10-22)
DX: A41.89 Other specified sepsis (principal); L89.313 Pressure ulcer of right buttock, stage 3; N18.6 End stage renal disease; I50.23 Acute on chronic systolic (congestive) heart failure; J96.92 Respiratory failure, unspecified with hypercapnia; J96.91 Respiratory failure, unspecified with hypoxia; G93.49 Other encephalopathy; L89.324 Pressure ulcer of left buttock, stage 4; L89.154 Pressure ulcer of sacral region, stage 4; T82.7XXA Infection and inflammatory reaction due to other cardiac and vascular devices, implants and grafts, initial encounter; E87.0 Hyperosmolality and hypernatremia; I13.2 Hypertensive heart and chronic kidney disease with heart failure and with stage 5 chronic kidney disease, or end stage renal disease; N39.0 Urinary tract infection, site not specified; N17.9 Acute kidney failure, unspecified; E87.3 Alkalosis; I42.9 Cardiomyopathy, unspecified; M86.8X8 Other osteomyelitis, other site; B37.49 Other urogenital candidiasis; R65.20 Severe sepsis without septic shock; Z95.0 Presence of cardiac pacemaker; E11.22 Type 2 diabetes mellitus with diabetic chronic kidney disease; E78.5 Hyperlipidemia, unspecified; I48.2 Chronic atrial fibrillation; E86.0 Dehydration; E87.6 Hypokalemia; N83.9 Noninflammatory disorder of ovary, fallopian tube and broad ligament, unspecified; D63.8 Anemia in other chronic diseases classified elsewhere; R13.10 Dysphagia, unspecified; Z93.1 Gastrostomy status; F03.90 Unspecified dementia, unspecified severity, without behavioral disturbance, psychotic disturbance, mood disturbance, and anxiety; Z66 Do not resuscitate; R19.00 Intra-abdominal and pelvic swelling, mass and lump, unspecified site; I70.90 Unspecified atherosclerosis; E88.09 Other disorders of plasma-protein metabolism, not elsewhere classified; E03.9 Hypothyroidism, unspecified; E11.69 Type 2 diabetes mellitus with other specified complication; E11.65 Type 2 diabetes mellitus with hyperglycemia; K52.9 Noninfective gastroenteritis and colitis, unspecified; D69.6 Thrombocytopenia, unspecified
CPT/HCPCS: 36430; 36569; 36600; 71045; 74018; 74176; 76856; 76937; 80048; 80053; 80069; 80202; 81001; 82140; 82550; 82553; 82565; 82803; 82962; 83036; 83605; 83735; 84100; 84300; 84484; 84520; 85025; 85610; 85651; 85730; 86140; 86304; 86850; 86900; 86901; 86920; 87040; 87045; 87070; 87081; 87086; 87340; 88304; 88311; 89190; 90935; 93005; 93306; 93931; 94640; 94660; 94664; 96365; 96366; 96375; 99285-25